=== PATIENT | female | born 1975 | race Caucasian/White ===

== ENCOUNTER 2022-01-06 14:33 | Inpatient (IN) | payer MEDICAID ==
[~2022-01-06] VITALS: Ht 160 cm; Wt 59.9 kg
[2022-01-06 15:55] LABS: ALANINE AMINOTRANSFERASE 29 U/L (12-78); ALBUMIN 4.5 G/DL (3.4-5.0); ALBUMIN/GLOBULIN RATIO 1.1 (1.1-1.5); ALKALINE PHOSPHATASE 91 IU/L (46-116); ANION GAP 33 (8-16); ASPARTATE AMINO TRANSFERASE 21 U/L (10-37); BILIRUBIN,TOTAL 0.5 MG/DL (0.1-1.0); BLOOD UREA NITROGEN 14 MG/DL (7-18); BUN/CREATININE RATIO 14.4 (6.6-38.0); CALCIUM 8.9 MG/DL (8.5-10.1); CHLORIDE 96 MMOL/L (99-107); CREATININE 0.97 MG/DL (0.40-0.90); GLUCOSE 92 MG/DL (70-104); LIPASE < 50 U/L (73-393); POTASSIUM 4.2 MMOL/L (3.5-5.1); SODIUM 138 MMOL/L (135-145); TOTAL PROTEIN 8.5 G/DL (6.4-8.2); eGFR 61 ML/MIN
[2022-01-06 15:56] LABS: BASOPHILS % (AUTO) 0.1 % (0-1); EOSINOPHILS % (AUTO) 0 % (0-6); HEMATOCRIT 45.8 % (35.0-45.0); HEMOGLOBIN 15.3 g/dl (12.0-16.0); LYMPHOCYTES # (AUTO) 1.2 X10'3 (1.1-4.8); LYMPHOCYTES % (AUTO) 8.6 % (21-51); MEAN CORPUSCULAR HEMOGLOBIN 33.4 PG (27.0-31.0); MEAN CORPUSCULAR HGB CONC 33.4 g/dL (33.0-36.5); MEAN CORPUSCULAR VOLUME 100.2 FL (78-98); MEAN PLATELET VOLUME 8.9 FL (7.4-10.4); MONOCYTES # (AUTO) 0.9 X10'3 (0-0.9); MONOCYTES % (AUTO) 6.2 % (2-12); NEUTROPHILS # (AUTO) 11.8 X10'3 (1.8-7.7); NEUTROPHILS % (AUTO) 85.1 % (42-75); PLATELET COUNT 248 X10'3 (140-440); RED BLOOD COUNT 4.58 X10'6 (4.20-5.60); RED CELL DISTRIBUTION WIDTH 14.6 % (11.5-14.5); WHITE BLOOD COUNT 13.9 X10'3 (4.5-11.0)
[2022-01-06] MEDS ORDERED: normal saline 1000ML IV soln IVB ONE ×2 (16:05→16:40)
[2022-01-06] MEDS ORDERED: ondansetron/PF 4mg/2ml inj IV ONE (16:05)
[2022-01-06 16:06] LABS: TOTAL CARBON DIOXIDE 9.5 MMOL/L (24-32)
[2022-01-06] MEDS ORDERED: famotidine/PF 10 mg/ml inj IV ONE (16:20)
[2022-01-06] MEDS ORDERED: thiamine 100mg/ml 2ml inj. IV ONE (16:20)
[2022-01-06] MEDS ORDERED: folic acid 1mg/0.2ml inj IV ONE (16:20)
[2022-01-06] MEDS ORDERED: normal saline 1000ml 1,000 ML IV ONE ×2 (16:20→16:40)
[2022-01-06 16:33] LABS: MAGNESIUM 1.7 MG/DL (1.5-2.4)
[2022-01-06 17:26] LABS: ETHANOL < 0.010 GM/DL (0.0-0.010)
[2022-01-06] MEDS ORDERED: acetaminophen 325mg tablet PO ONE (17:35)
[2022-01-06 17:49] LABS: CLARITY,URINE CLEAR (Clear); COLOR,URINE YELLOW (Yellow); GLUCOSE, URINE NEGATIVE (Neg); KETONES,URINE >=80 mg/dl (Neg); LEUKOCYTE ESTERASE ,URINE NEGATIVE (Neg); NITRITES, URINE NEGATIVE (Neg); OCCULT BLOOD,URINE TRACE-INTACT (Neg); PH,URINE 5.5 (4.8-8.0); PROTEIN,URINE TRACE mg/dl (Neg); UROBILINOGEN,URINE 0.2 E.U/dL (0.2-1.0)
[2022-01-06 17:51] LABS: UA COLLECTION TYPE NON-SPECIFIED
[2022-01-06 17:56] LABS: URINE AMPHETAMINE SCREEN NEGATIVE (Neg); URINE BARBITUATE SCREEN NEGATIVE (Neg); URINE BENZODIAZEPINES SCREEN NEGATIVE (Neg); URINE CANNABINOID SCREEN NEGATIVE (Neg); URINE COCAINE SCREEN NEGATIVE (Neg); URINE METHADONE SCREEN NEGATIVE (Neg); URINE OPIATE SCREEN NEGATIVE (Neg); URINE PHENCYCLIDINE SCREEN NEGATIVE (Neg)
[2022-01-06 18:01] LABS: BACTERIA,URINE FEW /HPF (Neg); RBC,URINE 0-2 /HPF (0-2); SQUAMOUS EPITHELIAL CELL,UR MANY /LPF (FEW); WBC,URINE 0-4 /HPF (0-4)
[2022-01-06 19:49] LABS: ABG BASE EXCESS -18.6 mmol/L (-2.0-2.0); ABG HCO3 7.4 mmol/L (22.0-26.0); ABG OXYGEN SATURATION 96.4 % (94-97); ABG PCO2 (T) 19.2 mmHg (32.0-45.0); ABG PO2 (T) 101.6 mmHg (75.0-100.0); FCOHb 0.3 % (0.0-3.9); FMetHb 0.2 % (0.0-1.5); FO2Hb 95.9 % (94-97); TOTAL HEMOGLOBIN 12.4 G/dl (12.0-16.0)
[2022-01-06] MEDS ORDERED: TRAZ-251 PO (20:59)
[2022-01-06] MEDS ORDERED: BUPR150T8 PO (20:59)
[2022-01-06 21:13] LABS: ALBUMIN 3.6 G/DL (3.4-5.0); ANION GAP 26 (8-16); BLOOD UREA NITROGEN 11 MG/DL (7-18); BUN/CREATININE RATIO 12.8 (6.6-38.0); CALCIUM 7.4 MG/DL (8.5-10.1); CHLORIDE 104 MMOL/L (99-107); CREATININE 0.86 MG/DL (0.40-0.90); GLUCOSE 80 MG/DL (70-104); POTASSIUM 4.5 MMOL/L (3.5-5.1); SODIUM 138 MMOL/L (135-145); eGFR 70 ML/MIN
[2022-01-06 21:15] LABS: TOTAL CARBON DIOXIDE 8.3 MMOL/L (24-32)
[2022-01-06] MEDS ORDERED: sodium bicarbonate (8.4%) 1 mEq/ml syringe IV ONE (22:35)
[2022-01-07] VITALS (19 sets, daily range): BP systolic 65–123; BP diastolic 42–87
--- NOTE | 2022-01-07 00:24 | NUR ---
Patient transfered from ER to room CICU 2009 via wheelchair, patient transfered to bed standing and pivoting, patient placed in hospital gown and belongings placed in a bag and put in bedside drawer. patient placed on monitor, call light in reach, bed locked and lowered. I have received report from veronica LLOYD and had the opportunity to ask questions and assume patient care .
--- NOTE | 2022-01-07 00:40 | NUR ---
Dr Ku called and patient condition reviewed, orders received
[2022-01-07] MEDS ORDERED: acetaminophen 325mg tablet PO PRN (00:45)
[2022-01-07] MEDS ORDERED: LORazepam 2 mg/ml vial IV PRN (00:45)
[2022-01-07] MEDS: ringers solution, lacted 1,000 ML IV SCH ×2 (01:18→11:14)
[2022-01-07] MEDS: ondansetron/PF 4mg/2ml inj IV PRN ×2 (01:18→09:45)
--- NOTE | 2022-01-07 06:21 | NUR ---
Problems reprioritized. Patient report given, questions answered & plan of care reviewed with Parish LLOYD.
[2022-01-07 06:23] LABS: BASOPHILS # (AUTO) 0.1 X10'3 (0-0.2); BASOPHILS % (AUTO) 0.8 % (0-1); EOSINOPHILS % (AUTO) 0 % (0-6); HEMATOCRIT 34.6 % (35.0-45.0); HEMOGLOBIN 11.6 g/dl (12.0-16.0); LYMPHOCYTES # (AUTO) 1.4 X10'3 (1.1-4.8); LYMPHOCYTES % (AUTO) 16.4 % (21-51); MEAN CORPUSCULAR HEMOGLOBIN 33.3 PG (27.0-31.0); MEAN CORPUSCULAR HGB CONC 33.5 g/dL (33.0-36.5); MEAN CORPUSCULAR VOLUME 99.5 FL (78-98); MEAN PLATELET VOLUME 8.8 FL (7.4-10.4); MONOCYTES # (AUTO) 0.9 X10'3 (0-0.9); MONOCYTES % (AUTO) 10.1 % (2-12); NEUTROPHILS # (AUTO) 6.2 X10'3 (1.8-7.7); NEUTROPHILS % (AUTO) 72.7 % (42-75); PLATELET COUNT 161 X10'3 (140-440); RED BLOOD COUNT 3.47 X10'6 (4.20-5.60); RED CELL DISTRIBUTION WIDTH 14.4 % (11.5-14.5); WHITE BLOOD COUNT 8.6 X10'3 (4.5-11.0)
[2022-01-07 07:05] LABS: ALANINE AMINOTRANSFERASE 22 U/L (12-78); ALBUMIN 3.3 G/DL (3.4-5.0); ALBUMIN/GLOBULIN RATIO 1.2 (1.1-1.5); ALKALINE PHOSPHATASE 61 IU/L (46-116); ANION GAP 18 (8-16); ASPARTATE AMINO TRANSFERASE 23 U/L (10-37); BILIRUBIN,TOTAL 0.9 MG/DL (0.1-1.0); BLOOD UREA NITROGEN 9 MG/DL (7-18); BUN/CREATININE RATIO 10.6 (6.6-38.0); CALCIUM 7.9 MG/DL (8.5-10.1); CHLORIDE 102 MMOL/L (99-107); CREATININE 0.85 MG/DL (0.40-0.90); GLUCOSE 85 MG/DL (70-104); SODIUM 134 MMOL/L (135-145); TOTAL PROTEIN 6.1 G/DL (6.4-8.2); eGFR 71 ML/MIN
[2022-01-07 07:10] LABS: TOTAL CARBON DIOXIDE 13.9 MMOL/L (24-32)
[2022-01-07] MEDS ORDERED: pantoprazole 40MG/NS 100ML BAG 100 ML IV SCH (08:00)
[2022-01-07] MEDS ORDERED: BUPR-317 PO (08:35)
[2022-01-07] MEDS ORDERED: buPROPion SR 100mg tab PO SCH (08:55)
[2022-01-07] MEDS ORDERED: buPROPion SR 150mg tablet PO SCH (09:01)
[2022-01-07] MEDS ORDERED: ESCI20TA25 PO (13:00)
[2022-01-07] MEDS ORDERED: LORazepam 1 MG tablet PO PRN (13:05)
[2022-01-07] MEDS: folic acid 1mg tablet PO SCH (14:37)
[2022-01-07] MEDS: multivitamins, therapeutics tablet PO SCH (14:37)
[2022-01-07] MEDS: thiamine 100mg tablet PO SCH (14:37)
--- NOTE | 2022-01-07 17:04 | NUR ---
Patient in room CICU 2009. I have received report from GABINO Lugo and had the opportunity to ask questions and assume patient care.
--- NOTE | 2022-01-07 17:19 | NUR ---
Report called to RN, all questions/concerns answered prior to transfer of pt. All pt's questions/concerns answered prior to transfer. All belonging accounted for prior to transfer.
--- NOTE | 2022-01-07 18:10 | NUR ---
Sodium bicarb solution due at 1725 but not available on the floor. Called pharmacy and they will bring it up shortly.
--- NOTE | 2022-01-07 18:36 | NUR ---
Patient in room ORTHO 4009. I have received report from Natividad LLOYD and had the opportunity to ask questions and assume patient care.
[2022-01-07] MEDS: sodium bicarbonate (8.4%) inj. 50 MEQ in dextrose 5%-water 1,000 ML IV SCH (18:42)
--- NOTE | 2022-01-07 18:46 | NUR ---
Problems reprioritized. Patient report given, questions answered & plan of care reviewed with GABINO James.
[2022-01-07] MEDS ORDERED: traZODone 50mg tablet PO SCH (21:00)
[2022-01-08] MEDS: sodium bicarbonate (8.4%) inj. 50 MEQ in dextrose 5%-water 1,000 ML IV SCH ×2 (04:17→14:25)
[2022-01-08 06:00] VITALS: BP 122/60
--- NOTE | 2022-01-08 06:14 | NUR ---
Problems reprioritized. Patient report given, questions answered & plan of care reviewed with Natividad LLOYD.
--- NOTE | 2022-01-08 06:49 | NUR ---
Patient in room ORTHO 4009. I have received report from GABINO James and had the opportunity to ask questions and assume patient care.
[2022-01-08] MEDS ORDERED: pantoprazole 40mg Tablet.DR PO SCH (07:30)
[2022-01-08] MEDS: thiamine 100mg tablet PO SCH (07:50)
[2022-01-08] MEDS: folic acid 1mg tablet PO SCH (07:51)
[2022-01-08] MEDS: multivitamins, therapeutics tablet PO SCH (07:51)
[2022-01-08] MEDS ORDERED: buPROPion SR 150mg tablet PO SCH (08:00)
[2022-01-08] MEDS ORDERED: ESCITALOPRAM OXALATE 5 MG TABLET PO SCH (08:00)
[2022-01-08] MEDS ORDERED: FOLI1TAB27 PO (11:39)
[2022-01-08] MEDS ORDERED: MULT-25 PO (11:39)
[2022-01-08] MEDS ORDERED: thiamine tablet PO (11:39)
[2022-01-08] MEDS ORDERED: PANT40TA54 PO (11:39)
[2022-01-08 12:00] LABS: BASOPHILS % (AUTO) 0.2 % (0-1); EOSINOPHILS % (AUTO) 0.3 % (0-6); HEMATOCRIT 36.6 % (35.0-45.0); HEMOGLOBIN 12.4 g/dl (12.0-16.0); LYMPHOCYTES # (AUTO) 1.6 X10'3 (1.1-4.8); LYMPHOCYTES % (AUTO) 33.8 % (21-51); MEAN CORPUSCULAR HEMOGLOBIN 33.1 PG (27.0-31.0); MEAN CORPUSCULAR HGB CONC 33.9 g/dL (33.0-36.5); MEAN CORPUSCULAR VOLUME 97.8 FL (78-98); MEAN PLATELET VOLUME 8.4 FL (7.4-10.4); MONOCYTES # (AUTO) 0.6 X10'3 (0-0.9); MONOCYTES % (AUTO) 12.2 % (2-12); NEUTROPHILS # (AUTO) 2.5 X10'3 (1.8-7.7); NEUTROPHILS % (AUTO) 53.5 % (42-75); PLATELET COUNT 140 X10'3 (140-440); RED BLOOD COUNT 3.74 X10'6 (4.20-5.60); RED CELL DISTRIBUTION WIDTH 13.8 % (11.5-14.5); WHITE BLOOD COUNT 4.8 X10'3 (4.5-11.0)
[2022-01-08 12:18] LABS: ALANINE AMINOTRANSFERASE 18 U/L (12-78); ALBUMIN 3.4 G/DL (3.4-5.0); ALBUMIN/GLOBULIN RATIO 1.1 (1.1-1.5); ALKALINE PHOSPHATASE 56 IU/L (46-116); ANION GAP 8 (8-16); ASPARTATE AMINO TRANSFERASE 19 U/L (10-37); BILIRUBIN,TOTAL 0.7 MG/DL (0.1-1.0); BLOOD UREA NITROGEN 5 MG/DL (7-18); BUN/CREATININE RATIO 7.6 (6.6-38.0); CALCIUM 8.6 MG/DL (8.5-10.1); CHLORIDE 101 MMOL/L (99-107); CREATININE 0.66 MG/DL (0.40-0.90); GLUCOSE 123 MG/DL (70-104); SODIUM 138 MMOL/L (135-145); TOTAL PROTEIN 6.4 G/DL (6.4-8.2); eGFR > 90 ML/MIN
[2022-01-08 12:24] LABS: POTASSIUM 2.9 MMOL/L (3.5-5.1)
--- NOTE | 2022-01-08 12:28 | NUR ---
PAGER ID: [phone] MESSAGE: Natividad [id number] RE: Graciela Soriano room 4009B labs are resulted. Lab called with critical value K 2.9
--- NOTE | 2022-01-08 12:33 | NUR ---
PAGER ID: [phone] MESSAGE: Natividad Shawnee9 THEO Soriano room 400B - there are no orders for K replacement. Would you like me to put in the orders or do you want to put them in
[2022-01-08] MEDS ORDERED: potassium CL 10mEq/100ml bag 100 ML IV PRN (12:40)
[2022-01-08] MEDS ORDERED: magnesium 4gm in 100ml NS 100 ML IV PRN (12:40)
[2022-01-08] MEDS ORDERED: magnesium Cl slow-release 64mg tablet PO PRN (12:40)
[2022-01-08] MEDS ORDERED: potassium Cl 20 mEq SR tablet PO PRN (12:40)
[2022-01-08] MEDS: potassium Cl 20 mEq SR tablet PO PRN ×2 (13:04→15:57)
[2022-01-08] MEDS ORDERED: POTA-207 PO (13:50)
--- NOTE | 2022-01-08 14:55 | NUR ---
PAGER ID: [phone] MESSAGE: Natividad [phone] THEO Graciela Soriano room 4009B - K redraw still 2.9. Replacement dose administered at 1300. Next dose due at 1700. Can she still be discharged today? Also can I stop her bicarb drip?
--- NOTE | 2022-01-08 16:01 | NUR ---
Contacted Dr. Hebert about K lever of 2.9 and to let her know that 1st dose of the replacement has been administered. The doctor ordered the second dose of K replacement to be given in 2 hours as opposed to the 4 hours noted in the K replacement protocol. Confirmed with MD that she is ordering the dose to be given sooner and she confirmed. Put in a miscellaneous nursing order with that info and notified Charge nurse as well.
--- NOTE | 2022-01-08 16:38 | NUR ---
Patient was discharged at 1630 with instructions and verbalizing understanding of instructions, in wheel chair accompanied by nursing staff. Patient was going home via private vehicle accompanied by her mother. All lines including PIV with cannula intact have been removed. Prescriptions have been called into preferred pharmacy. Patient was given information regarding [facility] as instructed by the provider. Education about new prescriptions has been provided and all questions have been answered. Patient will set follow up appointment with PCP to follow up on potassium levels in 1-2 weeks. Patient is stable and appropriate for discharge.
[2022-01-08] MEDS ORDERED: K and/or MAG REPLACEMENT MC SCH (20:00)
== END 2022-01-08 16:45 | disposition home or self-care (01) | DRG 241 ==
LOC: ER 14:34 → ED HOLD 22:11 → CICU 2S 01-07 00:01 → ORTHO 4S 01-07 17:13
PROVIDERS: ADMIT Internal Medicine; ATTEND Internal Medicine
DX: K29.70 Gastritis, unspecified, without bleeding (principal); E87.2 Acidosis; E86.0 Dehydration; Z20.822 Contact with and (suspected) exposure to COVID-19; F10.10 Alcohol abuse, uncomplicated; F32.A Depression, unspecified; F41.9 Anxiety disorder, unspecified; G47.00 Insomnia, unspecified; Z79.899 Other long term (current) drug therapy; Z88.1 Allergy status to other antibiotic agents
CPT/HCPCS: 36415; 36600; 71045; 80048; 80053; 80305; 80320; 80329; 81001; 82009; 82803; 83605; 83690; 83735; 83930; 84132; 85018; 85025; 87081; 99285; C9113; G0378; J2405; J3411; J3490; J7030; J7070; J7120

== ENCOUNTER 2022-11-23 21:06 | Inpatient (IN) | payer MEDICAID ==
[~2022-11-23] VITALS: Ht 160 cm; Wt 55.6 kg
[~2022-11-23 21:06] MED LIST: ESCI20TA36 PO; MULT-1085 PO; TRAZ-251 PO
[2022-11-23] MEDS ORDERED: diphenhydrAMINE 50 mg/ml inj IV ONE (22:55)
[2022-11-23] MEDS ORDERED: famotidine/PF 10 mg/ml inj IV ONE (22:55)
[2022-11-23] MEDS ORDERED: normal saline 1000ml 1,000 ML IV ONE ×2 (22:55)
[2022-11-23] MEDS ORDERED: proCHLORperazine 10 MG/2 ml inj IV ONE (22:55)
[2022-11-23] MEDS ORDERED: LORazepam 2 mg/ml vial IV ONE (23:00)
[2022-11-23 23:40] LABS: BASOPHILS % (AUTO) 0.3 % (0-1); EOSINOPHILS % (AUTO) 0 % (0-6); LYMPHOCYTES # (AUTO) 0.4 X10'3 (1.1-4.8); LYMPHOCYTES % (AUTO) 3.8 % (21-51); MEAN CORPUSCULAR HEMOGLOBIN 36.8 PG (27.0-31.0); MEAN CORPUSCULAR HGB CONC 34.2 g/dL (33.0-36.5); MEAN CORPUSCULAR VOLUME 107.6 FL (78-98); MEAN PLATELET VOLUME 8.7 FL (7.4-10.4); MONOCYTES # (AUTO) 0.5 X10'3 (0-0.9); MONOCYTES % (AUTO) 4.9 % (2-12); NEUTROPHILS # (AUTO) 9.9 X10'3 (1.8-7.7); PLATELET COUNT 144 X10'3 (140-440); RED BLOOD COUNT 3.81 X10'6 (4.20-5.60); RED CELL DISTRIBUTION WIDTH 13.6 % (11.5-14.5); WHITE BLOOD COUNT 10.9 X10'3 (4.5-11.0)
[2022-11-23 23:54] LABS: ALANINE AMINOTRANSFERASE 42 U/L (12-78); ALBUMIN 4.9 G/DL (3.4-5.0); ALBUMIN/GLOBULIN RATIO 1.2 (1.1-1.5); ALKALINE PHOSPHATASE 101 IU/L (46-116); ANION GAP 32 (8-16); ASPARTATE AMINO TRANSFERASE 24 U/L (10-37); BILIRUBIN,TOTAL 1.9 MG/DL (0.1-1.0); BLOOD UREA NITROGEN 10 MG/DL (7-18); BUN/CREATININE RATIO 9.5 (10.0-20.0); CALCIUM 8.5 MG/DL (8.5-10.1); CHLORIDE 88 MMOL/L (99-107); CREATININE 1.05 MG/DL (0.40-0.90); GLUCOSE 314 MG/DL (70-104); LIPASE < 50 U/L (73-393); POTASSIUM 5.2 MMOL/L (3.5-5.1); SODIUM 129 MMOL/L (135-145); TOTAL PROTEIN 8.9 G/DL (6.4-8.2); eGFR 56 ML/MIN
[2022-11-23 23:57] LABS: TOTAL CARBON DIOXIDE 9.4 MMOL/L (24-32)
[2022-11-24] MEDS ORDERED: magnesium 4gm in 100ml NS 100 ML IV ONE (00:10)
[2022-11-24] MEDS ORDERED: thiamine 100mg/ml 2ml inj. IV ONE (00:15)
[2022-11-24 00:38] LABS: ABG BASE EXCESS -15.3 mmol/L (-2.0-2.0); ABG HCO3 7.7 mmol/L (22.0-26.0); ABG OXYGEN SATURATION 98.9 % (94-97); ABG PCO2 (T) 15.2 mmHg (32.0-45.0); ALLEN'S TEST Modified; FCOHb 0.9 % (0.0-3.9); FMetHb 0.4 % (0.0-1.5); FO2Hb 97.6 % (94-97); PATIENT TEMPERATURE 37.1
[2022-11-24] MEDS ORDERED: HYDROcodone/acetaminophen 10/325mg tab PO PRN (01:25)
[2022-11-24] MEDS ORDERED: potassium Cl 20 mEq SR tablet PO PRN (01:25)
[2022-11-24] MEDS ORDERED: mag hydrox/Alum hydrox/simeth 30ml oral suspension PO PRN (01:25)
[2022-11-24] MEDS ORDERED: ondansetron/PF 4mg/2ml inj IV PRN (01:25)
[2022-11-24] MEDS ORDERED: haloperidol 5mg tablet PO PRN (01:25)
[2022-11-24] MEDS ORDERED: magnesium hydroxide 30ml (MOM) UD suspension PO PRN (01:25)
[2022-11-24] MEDS ORDERED: haloperidol lactate 5mg/ml inj IM PRN (01:25)
[2022-11-24] MEDS ORDERED: magnesium 4gm in 100ml NS 100 ML IV PRN (01:25)
[2022-11-24] MEDS ORDERED: metoclopramide 5 mg/ml inj IV PRN (01:25)
[2022-11-24] MEDS ORDERED: LORazepam 2 mg/ml vial IV PRN (01:25)
[2022-11-24] MEDS ORDERED: HYDROcodone/acetaminophen 5mg/325mg tablet PO PRN (01:25)
[2022-11-24] MEDS ORDERED: acetaminophen 325mg tablet PO PRN ×2 (01:25)
[2022-11-24] MEDS ORDERED: potassium Cl 40MEQ/1/2NS 520ml 520 ML IV PRN (01:25)
[2022-11-24 01:27] LABS: PHOSPHORUS 1.5 MG/DL (2.3-4.5)
[2022-11-24] MEDS: normal saline 1000ml 1,000 ML IV SCH ×4 (01:35→22:21)
[2022-11-24] MEDS ORDERED: ketorolac trometh. 30mg/ml inj. IV STA (01:45)
--- NOTE | 2022-11-24 07:27 | NUR ---
Report given to GABINO العراقي, pt room assignment [id number]
--- NOTE | 2022-11-24 07:32 | NUR ---
Received report form GABINO Asencio from the ER. Patient will be comming up via [facility] at this time.
--- NOTE | 2022-11-24 07:50 | NUR ---
Assumed care of pt. In room 313 B. NAD at this time. IV infusing per orders. VS WNL. TELE number 22 placed. Bed locked/ lowest position. Fluids present.
[2022-11-24 08:00] VITALS: BP 111/75
[2022-11-24] MEDS: ESCITALOPRAM OXALATE 5 MG TABLET PO SCH (08:00)
[2022-11-24] MEDS: multivitamins, therapeutics tablet PO SCH ×2 (08:00→09:16)
[2022-11-24] MEDS: K and/or MAG REPLACEMENT MC SCH ×2 (08:00→19:40)
[2022-11-24] MEDS: calcium carbonate 500mg chew tablet PO SCH ×3 (09:16→18:13)
[2022-11-24] MEDS: thiamine 100mg tablet PO SCH ×2 (09:17→19:37)
[2022-11-24] MEDS: docusate sod 100mg capsule PO SCH ×2 (09:17→19:40)
[2022-11-24 09:49] LABS: BASOPHILS % (AUTO) 0.7 % (0-1); EOSINOPHILS % (AUTO) 0.2 % (0-6); HEMATOCRIT 31.6 % (35.0-45.0); HEMOGLOBIN 10.6 g/dl (12.0-16.0); LYMPHOCYTES # (AUTO) 1.2 X10'3 (1.1-4.8); LYMPHOCYTES % (AUTO) 17.3 % (21-51); MEAN CORPUSCULAR HEMOGLOBIN 35.7 PG (27.0-31.0); MEAN CORPUSCULAR HGB CONC 33.5 g/dL (33.0-36.5); MEAN CORPUSCULAR VOLUME 106.6 FL (78-98); MEAN PLATELET VOLUME 8.3 FL (7.4-10.4); MONOCYTES # (AUTO) 0.8 X10'3 (0-0.9); MONOCYTES % (AUTO) 11.1 % (2-12); NEUTROPHILS # (AUTO) 4.9 X10'3 (1.8-7.7); NEUTROPHILS % (AUTO) 70.7 % (42-75); PLATELET COUNT 96 X10'3 (140-440); RED BLOOD COUNT 2.96 X10'6 (4.20-5.60); RED CELL DISTRIBUTION WIDTH 13.3 % (11.5-14.5); WHITE BLOOD COUNT 6.9 X10'3 (4.5-11.0)
--- NOTE | 2022-11-24 09:56 | NUR ---
Ordered labs per protocal. Pt is NAD at this time, reassessing k, there was no f/u labs on anything.
[2022-11-24 10:08] LABS: ALANINE AMINOTRANSFERASE 30 U/L (12-78); ALBUMIN 3.6 G/DL (3.4-5.0); ALBUMIN/GLOBULIN RATIO 1.3 (1.1-1.5); ALKALINE PHOSPHATASE 68 IU/L (46-116); ANION GAP 13 (8-16); ASPARTATE AMINO TRANSFERASE 22 U/L (10-37); BILIRUBIN,TOTAL 1.2 MG/DL (0.1-1.0); BLOOD UREA NITROGEN 10 MG/DL (7-18); BUN/CREATININE RATIO 11.8 (10.0-20.0); CALCIUM 7.6 MG/DL (8.5-10.1); CHLORIDE 100 MMOL/L (99-107); CREATININE 0.85 MG/DL (0.40-0.90); GLUCOSE 157 MG/DL (70-104); SODIUM 131 MMOL/L (135-145); TOTAL CARBON DIOXIDE 17.8 MMOL/L (24-32); TOTAL PROTEIN 6.4 G/DL (6.4-8.2); eGFR 71 ML/MIN
--- NOTE | 2022-11-24 10:38 | NUR ---
Pagenatalie PEARSON to help assist with admission process.
[2022-11-24 11:00] VITALS: BP 121/56
--- NOTE | 2022-11-24 13:02 | NUR ---
Paged the Hospitalist for in re: to pt's Na, and c/o of black tarry stools. Will CTM until feedback.
[2022-11-24 15:41] LABS: BASOPHILS % (AUTO) 0.7 % (0-1); EOSINOPHILS % (AUTO) 0.3 % (0-6); HEMATOCRIT 31.6 % (35.0-45.0); HEMOGLOBIN 10.8 g/dl (12.0-16.0); LYMPHOCYTES # (AUTO) 1.3 X10'3 (1.1-4.8); LYMPHOCYTES % (AUTO) 20.4 % (21-51); MEAN CORPUSCULAR HEMOGLOBIN 36.4 PG (27.0-31.0); MEAN CORPUSCULAR HGB CONC 34.1 g/dL (33.0-36.5); MEAN CORPUSCULAR VOLUME 106.7 FL (78-98); MEAN PLATELET VOLUME 9.2 FL (7.4-10.4); MONOCYTES # (AUTO) 0.6 X10'3 (0-0.9); NEUTROPHILS # (AUTO) 4.4 X10'3 (1.8-7.7); NEUTROPHILS % (AUTO) 68.6 % (42-75); PLATELET COUNT 101 X10'3 (140-440); RED BLOOD COUNT 2.96 X10'6 (4.20-5.60); RED CELL DISTRIBUTION WIDTH 13.8 % (11.5-14.5); WHITE BLOOD COUNT 6.4 X10'3 (4.5-11.0)
--- NOTE | 2022-11-24 16:46 | NUR ---
Hospitalist followed up in re: to q8 hr CBC checks which was ordered. EGD is going to be done this the morning an a sign is posted to remain NPO after midnight. Patients is stable at this time.
[2022-11-24 18:30] VITALS: BP 130/76
--- NOTE | 2022-11-24 18:36 | NUR ---
Reprioritized plan of care, report given to GABINO Thompson.
[2022-11-24] MEDS ORDERED: enoxaparin 40mg/0.4ml syringe SQ SCH (20:00)
[2022-11-24] MEDS: traZODone 50mg tablet PO SCH (22:20)
[2022-11-24 22:30] VITALS: BP 117/76
[2022-11-25] VITALS (9 sets, daily range): BP systolic 91–146; BP diastolic 56–87
[2022-11-25 01:59] LABS: BASOPHILS % (AUTO) 0.5 % (0-1); EOSINOPHILS % (AUTO) 0.5 % (0-6); HEMATOCRIT 30.5 % (35.0-45.0); HEMOGLOBIN 10.5 g/dl (12.0-16.0); LYMPHOCYTES # (AUTO) 1.3 X10'3 (1.1-4.8); LYMPHOCYTES % (AUTO) 28.1 % (21-51); MEAN CORPUSCULAR HEMOGLOBIN 36.6 PG (27.0-31.0); MEAN CORPUSCULAR HGB CONC 34.4 g/dL (33.0-36.5); MEAN CORPUSCULAR VOLUME 106.2 FL (78-98); MEAN PLATELET VOLUME 8.6 FL (7.4-10.4); MONOCYTES # (AUTO) 0.3 X10'3 (0-0.9); MONOCYTES % (AUTO) 5.6 % (2-12); NEUTROPHILS # (AUTO) 3.1 X10'3 (1.8-7.7); NEUTROPHILS % (AUTO) 65.3 % (42-75); PLATELET COUNT 85 X10'3 (140-440); RED BLOOD COUNT 2.87 X10'6 (4.20-5.60); RED CELL DISTRIBUTION WIDTH 13.5 % (11.5-14.5); WHITE BLOOD COUNT 4.7 X10'3 (4.5-11.0)
[2022-11-25 03:39] LABS: ALANINE AMINOTRANSFERASE 28 U/L (12-78); ALBUMIN 3.6 G/DL (3.4-5.0); ALBUMIN/GLOBULIN RATIO 1.4 (1.1-1.5); ALKALINE PHOSPHATASE 62 IU/L (46-116); ANION GAP 12 (8-16); ASPARTATE AMINO TRANSFERASE 28 U/L (10-37); BILIRUBIN,TOTAL 1.1 MG/DL (0.1-1.0); BLOOD UREA NITROGEN 4 MG/DL (7-18); BUN/CREATININE RATIO 6.8 (10.0-20.0); CALCIUM 8.1 MG/DL (8.5-10.1); CHLORIDE 106 MMOL/L (99-107); CREATININE 0.59 MG/DL (0.40-0.90); FERRITIN 761 NG/ML (8-252); GLUCOSE 95 MG/DL (70-104); LIPASE 91 U/L (73-393); MAGNESIUM 1.9 MG/DL (1.5-2.4); POTASSIUM 3.3 MMOL/L (3.5-5.1); SODIUM 140 MMOL/L (135-145); TOTAL CARBON DIOXIDE 22.4 MMOL/L (24-32); TOTAL PROTEIN 6.1 G/DL (6.4-8.2); eGFR > 90 ML/MIN
[2022-11-25 03:40] LABS: PHOSPHORUS 0.8 MG/DL (2.3-4.5)
[2022-11-25] MEDS: potassium Cl 20 mEq SR tablet PO PRN ×2 (03:45→19:37)
[2022-11-25] MEDS: normal saline 1000ml 1,000 ML IV SCH ×3 (03:50→16:50)
[2022-11-25] MEDS: Neutra Phos packet PO SCH ×4 (04:30→19:37)
[2022-11-25 06:52] LABS: % IRON SATURATION 87 % (11-46); IRON 220 UG/DL (49-151); TOTAL IRON BINDING CAPACITY 254 UG/DL (259-388)
[2022-11-25] MEDS: multivitamins, therapeutics tablet PO SCH ×2 (07:34→08:00)
[2022-11-25] MEDS: ESCITALOPRAM OXALATE 5 MG TABLET PO SCH (07:34)
[2022-11-25] MEDS: thiamine 100mg tablet PO SCH ×2 (07:34→19:37)
[2022-11-25] MEDS: calcium carbonate 500mg chew tablet PO SCH ×3 (07:35→16:50)
[2022-11-25] MEDS ORDERED: Neutra Phos packet PO SCH (08:00)
[2022-11-25] MEDS: docusate sod 100mg capsule PO SCH (08:00)
[2022-11-25] MEDS: K and/or MAG REPLACEMENT MC SCH ×2 (08:00→19:37)
[2022-11-25] MEDS ORDERED: pantoprazole 40mg IV 80 MG in normal saline 100ml IV soln 100 ML IV ONE (10:00)
[2022-11-25] MEDS: pantoprazole 40MG/NS 100ML BAG 100 ML IV SCH ×3 (11:31→21:57)
[2022-11-25] MEDS ORDERED: fentaNYL/PF 50MCG/1 ML 2ML syringe ONE (12:50)
[2022-11-25] MEDS ORDERED: MIDAZolam 1 MG/ML 5ML VIAL ONE (12:50)
[2022-11-25] MEDS ORDERED: LIDOcaine Viscous 15ml cup ONE (12:50)
[2022-11-25] MEDS ORDERED: diphenhydrAMINE 50 mg/ml inj ONE (16:43)
--- NOTE | 2022-11-25 18:05 | NUR ---
Problems reprioritized. Patient report given, questions answered & plan of care reviewed with GABINO Thompson.
[2022-11-25] MEDS: traZODone 50mg tablet PO SCH (22:01)
[2022-11-26] MEDS: Neutra Phos packet PO SCH ×2 (00:17→10:48)
[2022-11-26] MEDS ORDERED: LORazepam 2 mg/ml vial IV PRN (01:25)
[2022-11-26] MEDS ORDERED: LORazepam 1 MG tablet PO PRN (01:25)
[2022-11-26] MEDS: pantoprazole 40MG/NS 100ML BAG 100 ML IV SCH ×3 (01:31→11:00)
[2022-11-26 02:00] VITALS: BP 118/72
[2022-11-26] MEDS: normal saline 1000ml 1,000 ML IV SCH (07:13)
[2022-11-26] MEDS: multivitamins, therapeutics tablet PO SCH (07:15)
[2022-11-26] MEDS: ESCITALOPRAM OXALATE 5 MG TABLET PO SCH (07:15)
[2022-11-26] MEDS: calcium carbonate 500mg chew tablet PO SCH (07:15)
[2022-11-26] MEDS: thiamine 100mg tablet PO SCH (07:16)
[2022-11-26 07:20] VITALS: BP 112/71
[2022-11-26 07:51] LABS: ALANINE AMINOTRANSFERASE 61 U/L (12-78); ALBUMIN 3.4 G/DL (3.4-5.0); ALBUMIN/GLOBULIN RATIO 1.4 (1.1-1.5); ALKALINE PHOSPHATASE 61 IU/L (46-116); ANION GAP 8 (8-16); ASPARTATE AMINO TRANSFERASE 91 U/L (10-37); CALCIUM 8.5 MG/DL (8.5-10.1); CHLORIDE 106 MMOL/L (99-107); CREATININE 0.42 MG/DL (0.40-0.90); GLUCOSE 99 MG/DL (70-104); LIPASE 165 U/L (73-393); MAGNESIUM 1.5 MG/DL (1.5-2.4); PHOSPHORUS 2.2 MG/DL (2.3-4.5); POTASSIUM 3.5 MMOL/L (3.5-5.1); SODIUM 140 MMOL/L (135-145); TOTAL CARBON DIOXIDE 26.2 MMOL/L (24-32); TOTAL PROTEIN 5.8 G/DL (6.4-8.2); eGFR > 90 ML/MIN
[2022-11-26] MEDS ORDERED: naltrexone 50mg tablet PO SCH (08:00)
[2022-11-26] MEDS: K and/or MAG REPLACEMENT MC SCH (08:00)
[2022-11-26 08:19] LABS: BLOOD UREA NITROGEN 1 MG/DL (7-18); BUN/CREATININE RATIO 2.4 (10.0-20.0)
[2022-11-26 09:20] LABS: BASOPHILS % (AUTO) 0.4 % (0-1); EOSINOPHILS % (AUTO) 1.2 % (0-6); HEMATOCRIT 31.9 % (35.0-45.0); HEMOGLOBIN 10.4 g/dl (12.0-16.0); LYMPHOCYTES % (AUTO) 29.7 % (21-51); MEAN CORPUSCULAR HEMOGLOBIN 36.3 PG (27.0-31.0); MEAN CORPUSCULAR HGB CONC 32.6 g/dL (33.0-36.5); MEAN CORPUSCULAR VOLUME 111.2 FL (78-98); MEAN PLATELET VOLUME 9.2 FL (7.4-10.4); MONOCYTES # (AUTO) 0.3 X10'3 (0-0.9); MONOCYTES % (AUTO) 7.8 % (2-12); NEUTROPHILS % (AUTO) 60.9 % (42-75); PLATELET COUNT 68 X10'3 (140-440); RED BLOOD COUNT 2.87 X10'6 (4.20-5.60); RED CELL DISTRIBUTION WIDTH 13.7 % (11.5-14.5); WHITE BLOOD COUNT 3.3 X10'3 (4.5-11.0)
[2022-11-26] MEDS ORDERED: THIA100T70 PO (10:50)
[2022-11-26] MEDS ORDERED: PANT-47 PO (10:50)
[2022-11-26] MEDS ORDERED: MULT-25 PO (10:50)
[2022-11-26] MEDS ORDERED: FOLI1TAB27 PO (10:50)
[2022-11-26] MEDS ORDERED: NALT50TA PO (10:50)
[2022-11-26 10:59] VITALS: BP 127/78
--- NOTE | 2022-11-26 12:04 | NUR ---
Patient stable and appropriate for discharge home with mother. Iv and felt carbonizer removed. New RX e-scripted to preferred pharmacy. All discharge instructions and education given and reviewed with patient. all questions answered.
[2022-11-28] MEDS ORDERED: LORazepam 2 mg/ml vial IV PRN (01:25)
[2022-11-28] MEDS ORDERED: LORazepam 1 MG tablet PO PRN (01:25)
[2022-11-28] MEDS ORDERED: folic acid 1mg tablet PO SCH (08:00)
== END 2022-11-26 12:07 | disposition home or self-care (01) | DRG 425 ==
LOC: ER 21:06 → ED HOLD 11-24 01:31 → PCU 3S 11-24 07:36
PROVIDERS: ADMIT Family Medicine; ATTEND Internal Medicine
PROC: 0DJ08ZZ Inspection of Upper Intestinal Tract, Via Natural or Artificial Opening Endoscopic (ICD-10-PCS; principal; 2022-11-25)
DX: E87.29 Other acidosis (principal); K92.0 Hematemesis; E83.39 Other disorders of phosphorus metabolism; R04.2 Hemoptysis; F10.139 Alcohol abuse with withdrawal, unspecified; E87.1 Hypo-osmolality and hyponatremia; E83.42 Hypomagnesemia; F17.210 Nicotine dependence, cigarettes, uncomplicated; G43.909 Migraine, unspecified, not intractable, without status migrainosus; R53.81 Other malaise; K92.1 Melena; Z88.1 Allergy status to other antibiotic agents; Z79.899 Other long term (current) drug therapy; Z71.6 Tobacco abuse counseling
CPT/HCPCS: 36415; 36600; 70450; 80053; 82009; 82607; 82728; 82803; 82948; 83540; 83550; 83605; 83690; 83735; 84100; 85018; 85025; 85610; 87081; 99152; 99153; 99285; A4620; C9113; G0378; J0780; J1200; J1885; J2060; J2250; J2405; J3010; J3411; J3475; J3490; J7030

== ENCOUNTER 2023-05-07 23:02 | Inpatient (IN) | payer MEDICAID ==
[~2023-05-07] VITALS: Ht 160 cm; Wt 51.9 kg
[~2023-05-07 23:02] MED LIST changes: +FOLI1TAB27 PO; -MULT-1085 PO; +MULT-25 PO; +NALT50TA PO; +PANT-47 PO; +THIA100T70 PO
[2023-05-07] MEDS ORDERED: ondansetron/PF 4mg/2ml inj IV ONE (23:20)
[2023-05-07] MEDS ORDERED: pantoprazole 40mg IV 80 MG in normal saline 100ml IV soln 100 ML IV ONE (23:20)
[2023-05-07] MEDS ORDERED: normal saline 1000ml 1,000 ML IV ONE (23:20)
[2023-05-07] MEDS ORDERED: proCHLORperazine 10 MG/2 ml inj IV ONE (23:40)
[2023-05-07] MEDS ORDERED: morphine 4 MG/ML inj SYRINge IV ONE (23:40)
[2023-05-08] VITALS (8 sets, daily range): BP systolic 83–115; BP diastolic 53–73; PULSE 86–122; RESP 14–21; TEMP 98.1–100.3; O2SAT 97–98
[2023-05-08] MEDS: pantoprazole 40MG/NS 100ML BAG 100 ML IV SCH ×3 (00:08→20:13)
[2023-05-08 00:30] LABS: BASOPHILS # (AUTO) 0.1 X10'3 (0-0.2); BASOPHILS % (AUTO) 0.8 % (0-1); EOSINOPHILS % (AUTO) 0 % (0-6); HEMATOCRIT 40.1 % (35.0-45.0); HEMOGLOBIN 13.4 g/dl (12.0-16.0); LYMPHOCYTES # (AUTO) 0.7 X10'3 (1.1-4.8); LYMPHOCYTES % (AUTO) 5.4 % (21-51); MEAN CORPUSCULAR HEMOGLOBIN 36.1 PG (27.0-31.0); MEAN CORPUSCULAR HGB CONC 33.4 g/dL (33.0-36.5); MEAN PLATELET VOLUME 8.4 FL (7.4-10.4); MONOCYTES # (AUTO) 0.8 X10'3 (0-0.9); NEUTROPHILS # (AUTO) 11.6 X10'3 (1.8-7.7); NEUTROPHILS % (AUTO) 87.8 % (42-75); PLATELET COUNT 168 X10'3 (140-440); RED BLOOD COUNT 3.71 X10'6 (4.20-5.60); RED CELL DISTRIBUTION WIDTH 13.9 % (11.5-14.5); WHITE BLOOD COUNT 13.2 X10'3 (4.5-11.0)
[2023-05-08 00:37] LABS: ALANINE AMINOTRANSFERASE 74 U/L (12-78); ALBUMIN 4.6 G/DL (3.4-5.0); ALBUMIN/GLOBULIN RATIO 1.1 (1.1-1.5); ALKALINE PHOSPHATASE 115 IU/L (46-116); ANION GAP 32 (8-16); ASPARTATE AMINO TRANSFERASE 61 U/L (10-37); BILIRUBIN,TOTAL 2.4 MG/DL (0.1-1.0); BLOOD UREA NITROGEN 13 MG/DL (7-18); BUN/CREATININE RATIO 5.9 (10.0-20.0); CALCIUM 9.4 MG/DL (8.5-10.1); CHLORIDE 84 MMOL/L (99-107); CREATININE 2.22 MG/DL (0.40-0.90); GLUCOSE 319 MG/DL (70-104); POTASSIUM 4.6 MMOL/L (3.5-5.1); SODIUM 130 MMOL/L (135-145); TOTAL PROTEIN 8.7 G/DL (6.4-8.2); eCRCL 25 ML/MIN; eGFR 23 ML/MIN
[2023-05-08 00:57] LABS: ETHANOL < 10 MG/DL (<10)
[2023-05-08 01:09] LABS: TOTAL CARBON DIOXIDE 13.8 MMOL/L (24-32)
[2023-05-08 01:21] LABS: HEMOGLOBIN A1C 4.9 % (4.5-6.2)
[2023-05-08 01:54] LABS: ABG OXYGEN SATURATION 95.5 % (94-97); ABG PCO2 (T) 22.2 mmHg (32.0-45.0); ABG PH (T) 7.346 (7.350-7.450); ABG PO2 (T) 81.3 mmHg (75.0-100.0); ALLEN'S TEST POSITIVE; FCOHb 0.1 % (0.0-3.9); FHHb 4.5 % (0.0-5.0); FMetHb 0.3 % (0.0-1.5); FO2Hb 95.1 % (94-97); MODE ROOM AIR; PATIENT TEMPERATURE 36.3; TOTAL HEMOGLOBIN 11.8 G/dl (12.0-16.0)
[2023-05-08 02:09] LABS: APTT 25 SECONDS (22-32); INR 1.2 INR; PROTHROMBIN TIME 12.4 SECONDS (9.0-12.0)
[2023-05-08] MEDS ORDERED: magnesium hydroxide 30ml (MOM) UD suspension PO PRN ×2 (03:05→10:35)
[2023-05-08] MEDS ORDERED: ondansetron/PF 4mg/2ml inj IV PRN ×2 (03:05→10:35)
[2023-05-08] MEDS ORDERED: MESSAGE TO PHARMACY PO ONE (03:10)
[2023-05-08] MEDS ORDERED: DEXTROSE 15 GM of carb/4 tabs (each vial/BOTTLE has 4 tablets) PO PRN ×2 (03:10)
[2023-05-08] MEDS ORDERED: insulin Lispro (HumaLOG) vial - multi-dose SQ SCH (03:10)
[2023-05-08] MEDS ORDERED: glucagon, human recombinant 1mg kit SUBCUT PRN (03:10)
[2023-05-08] MEDS ORDERED: dextrose 50%-water 50ml dispensing syringe IV PRN ×2 (03:10)
[2023-05-08] MEDS: normal saline 1000ml 1,000 ML IV SCH ×4 (03:37→19:27)
--- NOTE | 2023-05-08 03:59 | NUR ---
SPOKE WITH DR CHERRY REGARDING PT HIGH HR AND LOW MAP. PT DENIES SYMPTOMS. ALSO DISCUSSED NEED FOR BICARB AND NO NEW ORDERS FOR THAT. DID RECIEVE ORDERS FOR A REPEAT CBC, 5% ALBUMIN 500MLS IV ONCE AND TO GIVE THE 1 UNIT HUMALOG INSULIN PER NIGHTIME CORRECTION PROTOCOL.
[2023-05-08] MEDS ORDERED: albumin (Human) 5% 250ml 250 ML IV ONE ×2 (04:10)
[2023-05-08 04:13] LABS: BILIRUBIN,URINE MODERATE (Neg); CLARITY,URINE SLIGHTLY CLOUDY (Clear); COLOR,URINE YELLOW (Yellow); GLUCOSE, URINE NEGATIVE (Neg); KETONES,URINE >=80 mg/dl (Neg); LEUKOCYTE ESTERASE ,URINE NEGATIVE (Neg); NITRITES, URINE NEGATIVE (Neg); OCCULT BLOOD,URINE SMALL (Neg); PROTEIN,URINE 100 mg/dl (Neg); UROBILINOGEN,URINE 0.2 E.U/dL (0.2-1.0)
[2023-05-08 04:18] LABS: SQUAMOUS EPITHELIAL CELL,UR MANY /LPF (FEW); UA COLLECTION TYPE CLN CATCH MIDSTREAM
[2023-05-08 04:19] LABS: MUCUS STRANDS FEW /LPF (Neg)
[2023-05-08 04:21] LABS: TRANSITIONAL EPI CELLS,URINE FEW /HPF
[2023-05-08 04:22] LABS: RENAL CELLS, URINE FEW /HPF
[2023-05-08 04:23] LABS: RBC,URINE 0-2 /HPF (0-2); WBC,URINE 0-4 /HPF (0-4)
[2023-05-08 04:24] LABS: BACTERIA,URINE 3+ /HPF (Neg)
[2023-05-08 04:40] LABS: BASOPHILS % (AUTO) 0.2 % (0-1); EOSINOPHILS % (AUTO) 0 % (0-6); HEMATOCRIT 30.5 % (35.0-45.0); HEMOGLOBIN 10.3 g/dl (12.0-16.0); LYMPHOCYTES # (AUTO) 0.7 X10'3 (1.1-4.8); LYMPHOCYTES % (AUTO) 6.3 % (21-51); MEAN CORPUSCULAR HEMOGLOBIN 36.1 PG (27.0-31.0); MEAN CORPUSCULAR HGB CONC 33.9 g/dL (33.0-36.5); MEAN CORPUSCULAR VOLUME 106.5 FL (78-98); MEAN PLATELET VOLUME 8.5 FL (7.4-10.4); MONOCYTES # (AUTO) 0.6 X10'3 (0-0.9); MONOCYTES % (AUTO) 5.3 % (2-12); NEUTROPHILS # (AUTO) 10.2 X10'3 (1.8-7.7); NEUTROPHILS % (AUTO) 88.2 % (42-75); PLATELET COUNT 129 X10'3 (140-440); RED BLOOD COUNT 2.86 X10'6 (4.20-5.60); RED CELL DISTRIBUTION WIDTH 14.2 % (11.5-14.5); WHITE BLOOD COUNT 11.5 X10'3 (4.5-11.0)
--- NOTE | 2023-05-08 04:41 | NUR ---
RECHECKED PT BLOOD GLUCOSE PRIOR TO INSULIN ADMIN. PT BLOOD GLUCOSE 217, PER PROTOCOL, INSULIN NOT NEEDED.
[2023-05-08] MEDS ORDERED: ringers solution, lacted 1,000 ML IV ONE (06:35)
--- NOTE | 2023-05-08 06:36 | NUR ---
Per ICU doctor, Dr. Morris, patient does not have to be an ICU patient and should be downgraded. He said he will talk to the hospitalist doctor. Charge nurse Deyanira aware of this
[2023-05-08] MEDS ORDERED: pantoprazole 40MG/NS 100ML BAG 100 ML IV SCH (08:00)
--- NOTE | 2023-05-08 08:50 | NUR ---
Patiernt got up to the bedside commode, peripheral IV on left forearm got pulled out by accident
--- NOTE | 2023-05-08 09:15 | NUR ---
Dr. Xiong notified about the patient has dark stool when she has BM. Guiac stool performed, Dr. Xiong seen it and said its positive
[2023-05-08] MEDS: CefTRIAXone/D5W-Rocephin 1gm 50 ML IV SCH (09:21)
[2023-05-08] MEDS ORDERED: octreotide inj. 1,250 MCG in normal saline 250ml IV soln 250 ML IV ONE (09:45)
[2023-05-08 09:48] LABS: OCCULT BLOOD STOOL POSITIVE (Neg)
[2023-05-08] MEDS ORDERED: potassium Cl 40MEQ/1/2NS 520ml 520 ML IV PRN (10:35)
[2023-05-08] MEDS ORDERED: morphine 2 MG/ML inj. syringe IV PRN ×2 (10:35)
[2023-05-08] MEDS ORDERED: HYDROcodone/acetaminophen 10/325mg tab PO PRN (10:35)
[2023-05-08] MEDS ORDERED: magnesium 4gm in 100ml NS 100 ML IV PRN (10:35)
[2023-05-08] MEDS ORDERED: acetaminophen 325mg tablet PO PRN ×2 (10:35)
[2023-05-08] MEDS ORDERED: magnesium 2GM in 50ml NS 50 ML IV PRN (10:35)
[2023-05-08] MEDS ORDERED: HYDROcodone/acetaminophen 5mg/325mg tablet PO PRN (10:35)
--- NOTE | 2023-05-08 11:39 | NUR ---
GI lab nurse and resident told me that Dr. Paniagua preferred to do the EGD either in the ER or ICU setting. Charge nurse Deyanira was notified about this. Patient moved to a bigger room bed 6 from bed 8
[2023-05-08] MEDS ORDERED: fentaNYL/PF 50MCG/1 ML 2ML syringe ONE (11:50)
[2023-05-08] MEDS ORDERED: MIDAZolam 1 MG/ML 5ML VIAL ONE (11:50)
[2023-05-08] MEDS ORDERED: LIDOcaine Viscous 15ml cup ONE (11:50)
[2023-05-08] MEDS ORDERED: epiNEPHrine 0.1mg/ml 10ml syringe ONE (11:56)
[2023-05-08] MEDS ORDERED: CALCIUM GLUC 1gm/50ml NACL,iso 50 ML IV ONE (12:11)
--- NOTE | 2023-05-08 16:03 | NUR ---
PAGER ID: [phone] MESSAGE: [id number]. Graciela Soriano. Per GI report Dr Anderson's recommendation is for Protonix 80mg bolus and 8mg/hour. Rosita [phone]
[2023-05-08] MEDS ORDERED: pantoprazole 40mg IV 80 MG in normal saline 100ml IV soln 100 ML IV ONE (17:20)
--- NOTE | 2023-05-08 18:28 | NUR ---
Problems reprioritized. Patient report given, questions answered & plan of care reviewed with Ani LLOYD.
[2023-05-08] MEDS: docusate sod 100mg capsule PO SCH (19:50)
[2023-05-08] MEDS: K and/or MAG REPLACEMENT MC SCH (19:50)
[2023-05-09] VITALS (8 sets, daily range): BP systolic 87–113; BP diastolic 36–74; PULSE 87–101; RESP 15–18; TEMP 97.5–99.9; O2SAT 93–100
[2023-05-09] MEDS: pantoprazole 40MG/NS 100ML BAG 100 ML IV SCH ×3 (01:14→21:32)
[2023-05-09] MEDS: normal saline 1000ml 1,000 ML IV SCH ×3 (05:47→18:57)
[2023-05-09 07:36] LABS: BASOPHILS % (AUTO) 0.3 % (0-1); EOSINOPHILS % (AUTO) 0.1 % (0-6); HEMATOCRIT 24.1 % (35.0-45.0); HEMOGLOBIN 8.4 g/dl (12.0-16.0); LYMPHOCYTES # (AUTO) 1.3 X10'3 (1.1-4.8); LYMPHOCYTES % (AUTO) 17.6 % (21-51); MEAN CORPUSCULAR HEMOGLOBIN 34.7 PG (27.0-31.0); MEAN CORPUSCULAR VOLUME 99.1 FL (78-98); MEAN PLATELET VOLUME 8.7 FL (7.4-10.4); MONOCYTES # (AUTO) 0.2 X10'3 (0-0.9); MONOCYTES % (AUTO) 3.4 % (2-12); NEUTROPHILS # (AUTO) 5.8 X10'3 (1.8-7.7); NEUTROPHILS % (AUTO) 78.6 % (42-75); PLATELET COUNT 62 X10'3 (140-440); RED BLOOD COUNT 2.43 X10'6 (4.20-5.60); RED CELL DISTRIBUTION WIDTH 20.6 % (11.5-14.5); WHITE BLOOD COUNT 7.3 X10'3 (4.5-11.0)
[2023-05-09 07:46] LABS: INR 1.1 INR; PROTHROMBIN TIME 11.8 SECONDS (9.0-12.0)
[2023-05-09] MEDS: CefTRIAXone/D5W-Rocephin 1gm 50 ML IV SCH (07:52)
[2023-05-09] MEDS: docusate sod 100mg capsule PO SCH ×2 (08:00→20:00)
[2023-05-09] MEDS: K and/or MAG REPLACEMENT MC SCH ×2 (08:00→20:00)
[2023-05-09 08:23] LABS: ALANINE AMINOTRANSFERASE 37 U/L (12-78); ALBUMIN 3.5 G/DL (3.4-5.0); ALBUMIN/GLOBULIN RATIO 1.2 (1.1-1.5); ALKALINE PHOSPHATASE 56 IU/L (46-116); ANION GAP 15 (8-16); ASPARTATE AMINO TRANSFERASE 31 U/L (10-37); BILIRUBIN,TOTAL 0.8 MG/DL (0.1-1.0); BLOOD UREA NITROGEN 13 MG/DL (7-18); BUN/CREATININE RATIO 14.8 (10.0-20.0); CALCIUM 7.8 MG/DL (8.5-10.1); CHLORIDE 105 MMOL/L (99-107); CHOLESTEROL 171 MG/DL (0-200); CREATININE 0.88 MG/DL (0.40-0.90); GLUCOSE 116 MG/DL (70-104); HDL CHOLESTEROL 57 MG/DL (35-60); LDL CHOLESTEROL 73 MG/DL (50-100); POTASSIUM 3.1 MMOL/L (3.5-5.1); SODIUM 142 MMOL/L (135-145); TOTAL CARBON DIOXIDE 22.1 MMOL/L (24-32); TOTAL PROTEIN 6.5 G/DL (6.4-8.2); TRIGLYCERIDES 176 MG/DL (20-135); eCRCL 63 ML/MIN; eGFR 68 ML/MIN
[2023-05-09 08:37] LABS: MAGNESIUM 0.9 MG/DL (1.5-2.4); PHOSPHORUS 0.8 MG/DL (2.3-4.5)
[2023-05-09 08:42] LABS: APTT 24 SECONDS (22-32)
[2023-05-09 09:03] LABS: PLATELET ESTIMATE DECREASED
[2023-05-09 09:05] LABS: ANISOCYTOSIS 3+
[2023-05-09] MEDS: potassium Cl 20 mEq SR tablet PO PRN ×3 (09:51→18:00)
[2023-05-09] MEDS: magnesium Cl slow-release 64mg tablet PO PRN (09:53)
[2023-05-09] MEDS ORDERED: potassium phosphate inj 30 MMOL in normal saline 250ml IV soln 250 ML IV ONE (10:30)
[2023-05-09] MEDS: lactose-reduced food (Ensure Enlive) - 237ml bottle PO SCH ×2 (13:27→18:00)
[2023-05-09] MEDS: mag hydrox/Alum hydrox/simeth 30ml oral suspension PO PRN ×2 (16:07→20:59)
[2023-05-09] MEDS ORDERED: NALT50TA PO (17:02)
--- NOTE | 2023-05-09 18:31 | NUR ---
Problems reprioritized. Patient report given, questions answered & plan of care reviewed with Taryn LLOYD.
--- NOTE | 2023-05-09 18:32 | NUR ---
Student Medication Administration: For this medication-pass time frame, all medication were reviewed, dispensed, administered and documented per hospital policy by Julio Cesar ALCANTARA.
[2023-05-09] MEDS ORDERED: pantoprazole 40mg IV 40 MG in normal saline 100ml IV soln 100 ML IV SCH (20:00)
[2023-05-10] MEDS: normal saline 1000ml 1,000 ML IV SCH (00:53)
[2023-05-10 02:00] VITALS: BP 92/51; PULSE 88; RESP 15; TEMP 99.2; O2SAT 99
[2023-05-10] MEDS: mag hydrox/Alum hydrox/simeth 30ml oral suspension PO PRN (02:48)
[2023-05-10] MEDS: magnesium Cl slow-release 64mg tablet PO PRN ×2 (05:34→13:38)
[2023-05-10 06:00] VITALS: BP 101/43; PULSE 78; RESP 17; TEMP 98.7; O2SAT 99
--- NOTE | 2023-05-10 06:41 | NUR ---
Problems reprioritized. Patient report given, questions answered & plan of care reviewed with Amanda LLOYD. Pt stable at transfer of care
--- NOTE | 2023-05-10 07:19 | NUR ---
Patient in room PCU 3018. I have received report from GABINO CARABALLO, and had the opportunity to ask questions and assume patient care.
[2023-05-10 08:00] VITALS: RESP 17; O2SAT 99
[2023-05-10] MEDS: docusate sod 100mg capsule PO SCH (08:00)
[2023-05-10] MEDS: K and/or MAG REPLACEMENT MC SCH (08:00)
[2023-05-10] MEDS: lactose-reduced food (Ensure Enlive) - 237ml bottle PO SCH ×2 (08:00→13:43)
[2023-05-10] MEDS: pantoprazole 40MG/NS 100ML BAG 100 ML IV SCH (08:02)
[2023-05-10 08:32] LABS: BASOPHILS % (AUTO) 0.6 % (0-1); EOSINOPHILS % (AUTO) 0.2 % (0-6); HEMOGLOBIN 7.2 g/dl (12.0-16.0); LYMPHOCYTES # (AUTO) 1.2 X10'3 (1.1-4.8); LYMPHOCYTES % (AUTO) 31.7 % (21-51); MEAN CORPUSCULAR HEMOGLOBIN 34.2 PG (27.0-31.0); MEAN CORPUSCULAR VOLUME 97.7 FL (78-98); MEAN PLATELET VOLUME 8.8 FL (7.4-10.4); MONOCYTES # (AUTO) 0.2 X10'3 (0-0.9); NEUTROPHILS # (AUTO) 2.4 X10'3 (1.8-7.7); NEUTROPHILS % (AUTO) 61.5 % (42-75); RED BLOOD COUNT 2.11 X10'6 (4.20-5.60); RED CELL DISTRIBUTION WIDTH 19.8 % (11.5-14.5); WHITE BLOOD COUNT 3.8 X10'3 (4.5-11.0)
[2023-05-10 08:44] LABS: APTT 22 SECONDS (22-32); INR 1.1 INR; PROTHROMBIN TIME 11.3 SECONDS (9.0-12.0)
[2023-05-10 08:50] LABS: ALANINE AMINOTRANSFERASE 32 U/L (12-78); ALBUMIN 3.1 G/DL (3.4-5.0); ALBUMIN/GLOBULIN RATIO 1.4 (1.1-1.5); ALKALINE PHOSPHATASE 51 IU/L (46-116); ANION GAP 9 (8-16); ASPARTATE AMINO TRANSFERASE 33 U/L (10-37); BILIRUBIN,TOTAL 0.8 MG/DL (0.1-1.0); BLOOD UREA NITROGEN 4 MG/DL (7-18); BUN/CREATININE RATIO 6.8 (10.0-20.0); CALCIUM 7.4 MG/DL (8.5-10.1); CHLORIDE 107 MMOL/L (99-107); CREATININE 0.59 MG/DL (0.40-0.90); GLUCOSE 115 MG/DL (70-104); PHOSPHORUS 2.1 MG/DL (2.3-4.5); SODIUM 142 MMOL/L (135-145); TOTAL CARBON DIOXIDE 26.3 MMOL/L (24-32); TOTAL PROTEIN 5.3 G/DL (6.4-8.2); eCRCL 95 ML/MIN; eGFR > 90 ML/MIN
[2023-05-10 08:59] LABS: MAGNESIUM 0.8 MG/DL (1.5-2.4); POTASSIUM 2.7 MMOL/L (3.5-5.1)
--- NOTE | 2023-05-10 09:01 | NUR ---
CRITICAL LAB VALUES TAKEN FROM LAB, REPORTED TO PRIMARY RN.
[2023-05-10] MEDS: CefTRIAXone/D5W-Rocephin 1gm 50 ML IV SCH (09:06)
[2023-05-10 09:08] LABS: HEMATOCRIT 20.6 % (35.0-45.0)
[2023-05-10 09:09] LABS: PLATELET COUNT 42 X10'3 (140-440)
--- NOTE | 2023-05-10 09:13 | NUR ---
CRITICAL LABS REPORTED TO DR. CAGE. RECEIVED ORDERS TO FOR POTASSIUM AND MAGNESIUM PROTOCOL. NO ORDERS FOR BLOOD TRANSFUSION.
[2023-05-10 09:15] LABS: PLATELET ESTIMATE DECREASED
[2023-05-10 09:16] LABS: ANISOCYTOSIS 2+
[2023-05-10] MEDS: potassium Cl 20 mEq SR tablet PO PRN ×2 (09:23→13:40)
[2023-05-10 10:00] VITALS: BP 104/54; PULSE 87; RESP 16; TEMP 97.5; O2SAT 99
[2023-05-10 11:31] LABS: HEMOGLOBIN 7.7 g/dl (12.0-16.0); MEAN CORPUSCULAR HEMOGLOBIN 34.2 PG (27.0-31.0); MEAN CORPUSCULAR HGB CONC 34.9 g/dL (33.0-36.5); MEAN CORPUSCULAR VOLUME 98.1 FL (78-98); MEAN PLATELET VOLUME 8.4 FL (7.4-10.4); RED BLOOD COUNT 2.24 X10'6 (4.20-5.60); RED CELL DISTRIBUTION WIDTH 19.6 % (11.5-14.5); WHITE BLOOD COUNT 4.7 X10'3 (4.5-11.0)
[2023-05-10 11:39] LABS: PLATELET COUNT 46 X10'3 (140-440)
[2023-05-10] MEDS ORDERED: PANT-47 PO ×2 (12:53)
[2023-05-10] MEDS ORDERED: MULT-1085 PO (12:56)
[2023-05-10] MEDS ORDERED: FOLI0.4T6 PO (12:56)
[2023-05-10] MEDS ORDERED: THIA50TA10 PO (12:56)
[2023-05-10] MEDS ORDERED: FERR-119 PO (12:58)
[2023-05-10] MEDS ORDERED: ACAM333T8 PO (12:58)
--- NOTE | 2023-05-10 15:35 | NUR ---
PT STABLE FOR DISCHARGE PER MD. DISCHARGE AND FOLLOW UP INSTRUCTIONS REVIEWED WITH PT, APPROPRIATE PAPERWORK SIGNED. PIV REMOVED WITH TIP INTACT. BELONGINGS GATHERED AND RETURNED TO PT. PRESCRIPTIONS FAXED TO [facility]. PT STRONGLY ENCOURAGED TO SEEK HELP WITH ALCOHOLISM. PT TRANSFERRED TO PRIVATE VEHICLE BY HOSPITAL STAFF. PT DISCHARGED TO HOME.
[2023-05-10] MEDS ORDERED: POTA-207 PO (23:01)
[2023-05-10] MEDS ORDERED: MAGN400C PO (23:01)
[2023-05-10] MEDS ORDERED: NEUPHOSK PO (23:01)
[2023-05-12] MEDS ORDERED: pantoprazole 40mg Tablet.DR PO SCH (01:00)
== END 2023-05-10 15:26 | disposition home or self-care (01) | DRG 242 ==
LOC: ER 23:03 → ED HOLD 05-08 03:05 → PCU 3S 05-08 15:30
PROVIDERS: ADMIT Surgery Surgical Critical Care; ATTEND Surgery Surgical Critical Care
PROC: 0DJ08ZZ Inspection of Upper Intestinal Tract, Via Natural or Artificial Opening Endoscopic (ICD-10-PCS; principal; 2023-05-08)
PROC: 30233N1 Transfusion of Nonautologous Red Blood Cells into Peripheral Vein, Percutaneous Approach (ICD-10-PCS; 2023-05-08)
DX: K22.11 Ulcer of esophagus with bleeding (principal); N17.0 Acute kidney failure with tubular necrosis; R65.11 Systemic inflammatory response syndrome (SIRS) of non-infectious origin with acute organ dysfunction; E87.29 Other acidosis; E83.39 Other disorders of phosphorus metabolism; K21.01 Gastro-esophageal reflux disease with esophagitis, with bleeding; E87.6 Hypokalemia; E83.42 Hypomagnesemia; Z20.822 Contact with and (suspected) exposure to COVID-19; F10.10 Alcohol abuse, uncomplicated; K44.9 Diaphragmatic hernia without obstruction or gangrene; Z80.0 Family history of malignant neoplasm of digestive organs; Z80.1 Family history of malignant neoplasm of trachea, bronchus and lung; Z82.49 Family history of ischemic heart disease and other diseases of the circulatory system; Z85.07 Personal history of malignant neoplasm of pancreas; Z85.118 Personal history of other malignant neoplasm of bronchus and lung; Z79.899 Other long term (current) drug therapy; Z88.1 Allergy status to other antibiotic agents
CPT/HCPCS: 36415; 36430; 36600; 43235; 71045; 80053; 80061; 80320; 81001; 82272; 82803; 82948; 83036; 83605; 83735; 84100; 85008; 85018; 85025; 85027; 85610; 85730; 86885; 86900; 86901; 86920; 87040; 87081; 87811; 94760; 99152; 99285; A4620; C9113; G0378; J0171; J0610; J0696; J0780; J1815; J2250; J2270; J2354; J2405; J3010; J3490; J7030; J7050; J7120; P9016; P9045

== ENCOUNTER 2023-09-09 20:15 | Inpatient (IN) | payer MEDICAID ==
[~2023-09-09] VITALS: Ht 160 cm; Wt 61.4 kg
[~2023-09-09 20:15] MED LIST changes: +ACAM333T8 PO; +FERR-119 PO; -FOLI1TAB27 PO; +MAGN400C PO; +MULT-1085 PO; -MULT-25 PO; -NALT50TA PO; +NEUPHOSK PO; -THIA100T70 PO; +THIA50TA10 PO
[2023-09-09 21:09] LABS: BASOPHILS % (AUTO) 0.2 % (0-1); EOSINOPHILS % (AUTO) 0 % (0-6); HEMATOCRIT 41.5 % (35.0-45.0); HEMOGLOBIN 13.9 g/dl (12.0-16.0); LYMPHOCYTES # (AUTO) 0.6 X10'3 (1.1-4.8); LYMPHOCYTES % (AUTO) 5.3 % (21-51); MEAN CORPUSCULAR HEMOGLOBIN 33.3 PG (27.0-31.0); MEAN CORPUSCULAR HGB CONC 33.6 g/dL (33.0-36.5); MEAN CORPUSCULAR VOLUME 99.4 FL (78-98); MONOCYTES # (AUTO) 0.6 X10'3 (0-0.9); MONOCYTES % (AUTO) 5.6 % (2-12); NEUTROPHILS # (AUTO) 9.4 X10'3 (1.8-7.7); NEUTROPHILS % (AUTO) 88.9 % (42-75); PLATELET COUNT 171 X10'3 (140-440); RED BLOOD COUNT 4.18 X10'6 (4.20-5.60); RED CELL DISTRIBUTION WIDTH 16.3 % (11.5-14.5); WHITE BLOOD COUNT 10.6 X10'3 (4.5-11.0)
[2023-09-09] MEDS ORDERED: ONDA4TAB12 PO (21:39)
[2023-09-09 21:42] LABS: ALBUMIN 5.1 G/DL (3.4-5.0); ANION GAP 35 (8-16); BLOOD UREA NITROGEN 7 MG/DL (7-18); CALCIUM 9.3 MG/DL (8.5-10.1); CHLORIDE 88 MMOL/L (99-107); CREATININE 1.17 MG/DL (0.40-0.90); GLUCOSE 269 MG/DL (70-104); POTASSIUM 4.6 MMOL/L (3.5-5.1); PRO BRAIN NATRIURETIC PEPTIDE 135 PG/ML (0-125); SODIUM 130 MMOL/L (135-145); eCRCL 48 ML/MIN; eGFR 49 ML/MIN
[2023-09-09 21:46] LABS: TOTAL CARBON DIOXIDE 7.2 MMOL/L (24-32)
[2023-09-09] MEDS: LORazepam 2 mg/ml vial IV ONE (21:50)
[2023-09-09] MEDS: diphenhydrAMINE 50 mg/ml inj IV ONE (21:50)
[2023-09-09] MEDS: metoclopramide 5 mg/ml inj IV ONE (21:51)
[2023-09-09] MEDS: glycopyrrolate 0.2mg/ml inj IV ONE (21:51)
[2023-09-09 22:08] LABS: ABG HCO3 6.9 mmol/L (22.0-26.0); ABG PCO2 (T) 16.4 mmHg (32.0-45.0); ABG PO2 (T) 79.1 mmHg (75.0-100.0); FCOHb 0.7 % (0.0-3.9); FHHb 5.9 % (0.0-5.0); FMetHb 0.4 % (0.0-1.5); MODE ROOM AIR; PATIENT TEMPERATURE 36.8; TOTAL HEMOGLOBIN 14.7 G/dl (12.0-16.0)
[2023-09-09] MEDS: normal saline 1000ML IV soln IVB ONE (22:09)
[2023-09-09] MEDS ORDERED: pantoprazole 40mg IV 80 MG in normal saline 100ml IV soln 100 ML IV ONE (23:20)
[2023-09-09] MEDS: acetaminophen 1,000mg/100ml IV 100 ML IV STA (23:33)
[2023-09-09] MEDS: LIDOcaine Viscous 15ml cup MM ONE (23:45)
[2023-09-09] MEDS: normal saline 1000ml 1,000 ML IV ONE (23:45)
[2023-09-09] MEDS: pantoprazole 40 MG vial IV ONE (23:49)
[2023-09-09] MEDS: pantoprazole 40MG/NS 100ML BAG 100 ML IV SCH (23:49)
[2023-09-09] MEDS: CefTRIAXone/D5W-Rocephin 1gm 50 ML IV ONE (23:49)
[2023-09-10] MEDS: normal saline 1000ML IV soln IV ONE (00:07)
[2023-09-10 00:28] LABS: ALANINE AMINOTRANSFERASE 21 U/L (12-78); ALBUMIN/GLOBULIN RATIO 1.2 (1.1-1.5); ALKALINE PHOSPHATASE 86 IU/L (46-116); ANION GAP 34 (8-16); ASPARTATE AMINO TRANSFERASE 21 U/L (10-37); BILIRUBIN,TOTAL 1.9 MG/DL (0.1-1.0); BLOOD UREA NITROGEN 9 MG/DL (7-18); BUN/CREATININE RATIO 7.6 (10.0-20.0); CALCIUM 9.2 MG/DL (8.5-10.1); CHLORIDE 89 MMOL/L (99-107); CREATININE 1.19 MG/DL (0.40-0.90); GLUCOSE 220 MG/DL (70-104); LIPASE 17 U/L (16-77); MAGNESIUM 1.3 MG/DL (1.5-2.4); POTASSIUM 4.5 MMOL/L (3.5-5.1); PRO BRAIN NATRIURETIC PEPTIDE 181 PG/ML (0-125); SODIUM 132 MMOL/L (135-145); TOTAL PROTEIN 9.3 G/DL (6.4-8.2); eCRCL 47 ML/MIN; eGFR 48 ML/MIN
[2023-09-10 00:35] LABS: TOTAL CARBON DIOXIDE 8.7 MMOL/L (24-32)
[2023-09-10] MEDS: levoFLOXACIN-Levaquin 750MG/D5 150 ML IV ONE (00:43)
[2023-09-10] MEDS: magnesium 4gm in 100ml NS 100 ML IV ONE (01:20)
[2023-09-10] MEDS: LORazepam 2 mg/ml vial IV ONE (02:24)
[2023-09-10] MEDS: mag hydrox/Alum hydrox/simeth 30ml oral suspension PO ONE (02:25)
[2023-09-10] MEDS ORDERED: acetaminophen 325mg tablet PO PRN (03:25)
[2023-09-10] MEDS ORDERED: potassium Cl 20 mEq SR tablet PO PRN (03:25)
[2023-09-10] MEDS ORDERED: magnesium Cl slow-release 64mg tablet PO PRN (03:25)
[2023-09-10] MEDS ORDERED: LORazepam 2 mg/ml vial IV PRN (03:25)
[2023-09-10] MEDS ORDERED: magnesium hydroxide 30ml (MOM) UD suspension PO PRN (03:25)
[2023-09-10] MEDS ORDERED: LORazepam 1 MG tablet PO PRN (03:25)
[2023-09-10] MEDS: normal saline 1000ml 1,000 ML IV SCH (03:25)
[2023-09-10] MEDS: heparin, porcine 5000 units/ml vial SQ SCH (07:15)
[2023-09-10] MEDS: magnesium 2GM in 50ml NS 50 ML IV PRN (07:15)
[2023-09-10] MEDS: thiamine 100mg/ml 2ml inj. IV SCH (07:17)
[2023-09-10] MEDS: morphine 2 MG/ML inj. syringe IV PRN (07:17)
[2023-09-10] MEDS: K and/or MAG REPLACEMENT MC SCH (07:26)
[2023-09-10 07:37] LABS: BILIRUBIN,URINE SMALL (Neg); CLARITY,URINE CLEAR (Clear); COLOR,URINE YELLOW (Yellow); GLUCOSE, URINE NEGATIVE (Neg); KETONES,URINE >=80 mg/dl (Neg); LEUKOCYTE ESTERASE ,URINE NEGATIVE (Neg); NITRITES, URINE NEGATIVE (Neg); OCCULT BLOOD,URINE SMALL (Neg); PROTEIN,URINE 100 mg/dl (Neg); UROBILINOGEN,URINE 0.2 E.U/dL (0.2-1.0)
[2023-09-10 07:43] LABS: UA COLLECTION TYPE NON-SPECIFIED
[2023-09-10 07:45] LABS: BACTERIA,URINE NONE SEEN /HPF (Neg); MUCUS STRANDS FEW /LPF (Neg); RBC,URINE 0-2 /HPF (0-2); SQUAMOUS EPITHELIAL CELL,UR FEW /LPF (FEW); WBC,URINE NONE SEEN /HPF (0-4)
[2023-09-10 08:42] LABS: GASTRIC OCCULT BLOOD POSITIVE (Neg)
[2023-09-10 09:11] LABS: BASOPHILS % (AUTO) 0.1 % (0-1); EOSINOPHILS % (AUTO) 0 % (0-6); HEMATOCRIT 31.7 % (35.0-45.0); HEMOGLOBIN 10.6 g/dl (12.0-16.0); LYMPHOCYTES # (AUTO) 0.9 X10'3 (1.1-4.8); LYMPHOCYTES % (AUTO) 10.5 % (21-51); MEAN CORPUSCULAR HGB CONC 33.6 g/dL (33.0-36.5); MEAN CORPUSCULAR VOLUME 98.4 FL (78-98); MEAN PLATELET VOLUME 8.1 FL (7.4-10.4); MONOCYTES # (AUTO) 1.1 X10'3 (0-0.9); MONOCYTES % (AUTO) 12.2 % (2-12); NEUTROPHILS # (AUTO) 6.7 X10'3 (1.8-7.7); NEUTROPHILS % (AUTO) 77.2 % (42-75); PLATELET COUNT 134 X10'3 (140-440); RED BLOOD COUNT 3.22 X10'6 (4.20-5.60); RED CELL DISTRIBUTION WIDTH 16.2 % (11.5-14.5); WHITE BLOOD COUNT 8.7 X10'3 (4.5-11.0)
[2023-09-10 09:13] LABS: ALANINE AMINOTRANSFERASE 16 U/L (12-78); ALBUMIN 3.8 G/DL (3.4-5.0); ALBUMIN/GLOBULIN RATIO 1.1 (1.1-1.5); ALKALINE PHOSPHATASE 61 IU/L (46-116); ANION GAP 22 (8-16); ASPARTATE AMINO TRANSFERASE 15 U/L (10-37); BILIRUBIN,TOTAL 1.2 MG/DL (0.1-1.0); BLOOD UREA NITROGEN 7 MG/DL (7-18); BUN/CREATININE RATIO 7.8 (10.0-20.0); CALCIUM 7.6 MG/DL (8.5-10.1); CHLORIDE 98 MMOL/L (99-107); GLUCOSE 137 MG/DL (70-104); POTASSIUM 3.9 MMOL/L (3.5-5.1); SALICYLATE 4.5 MG/DL (4.0-20.0); SODIUM 131 MMOL/L (135-145); TOTAL PROTEIN 7.4 G/DL (6.4-8.2); eCRCL 63 ML/MIN; eGFR 67 ML/MIN
[2023-09-10 09:18] LABS: OSMOLALITY 288 MOSM/K (280-300)
[2023-09-10 09:26] LABS: HEMOGLOBIN A1C 5.3 % (4.5-6.2)
[2023-09-10 09:27] LABS: TOTAL CARBON DIOXIDE 10.7 MMOL/L (24-32)
[2023-09-10] MEDS ORDERED: pantoprazole 40mg IV 80 MG in normal saline 100ml IV soln 100 ML IV ONE (10:05)
[2023-09-10] MEDS ORDERED: pantoprazole 40MG/NS 100ML BAG 100 ML IV SCH (11:00)
[2023-09-10] MEDS: magnesium 4gm in 100ml NS 100 ML IV PRN (12:06)
[2023-09-10 12:58] LABS: URINE AMPHETAMINE SCREEN NEGATIVE (Neg); URINE BARBITUATE SCREEN NEGATIVE (Neg); URINE BENZODIAZEPINES SCREEN NEGATIVE (Neg); URINE CANNABINOID SCREEN NEGATIVE (Neg); URINE COCAINE SCREEN NEGATIVE (Neg); URINE METHADONE SCREEN NEGATIVE (Neg); URINE OPIATE SCREEN NEGATIVE (Neg); URINE PHENCYCLIDINE SCREEN NEGATIVE (Neg)
[2023-09-10 14:30] VITALS: BP 124/85; PULSE 120; RESP 16; TEMP 98.3; O2SAT 100; O2SAT 95
[2023-09-10 18:00] VITALS: BP 116/68; PULSE 116; RESP 16; TEMP 98.1; O2SAT 99
[2023-09-10 20:00] VITALS: RESP 15; O2SAT 97
[2023-09-10 22:00] VITALS: BP 105/64; PULSE 102; RESP 18; TEMP 99.3; O2SAT 100
[2023-09-11] VITALS (7 sets, daily range): BP systolic 109–132; BP diastolic 47–70; PULSE 87–110; RESP 16–17; TEMP 98–99.2; O2SAT 95–100
[2023-09-11] MEDS: mag hydrox/Alum hydrox/simeth 30ml oral suspension PO PRN (01:05)
[2023-09-11 07:35] LABS: BASOPHILS % (AUTO) 0.3 % (0-1); EOSINOPHILS % (AUTO) 0.1 % (0-6); HEMATOCRIT 28.5 % (35.0-45.0); HEMOGLOBIN 9.6 g/dl (12.0-16.0); LYMPHOCYTES # (AUTO) 1.5 X10'3 (1.1-4.8); LYMPHOCYTES % (AUTO) 24.4 % (21-51); MEAN CORPUSCULAR HEMOGLOBIN 32.8 PG (27.0-31.0); MEAN CORPUSCULAR HGB CONC 33.6 g/dL (33.0-36.5); MEAN CORPUSCULAR VOLUME 97.4 FL (78-98); MEAN PLATELET VOLUME 8.9 FL (7.4-10.4); MONOCYTES # (AUTO) 0.5 X10'3 (0-0.9); MONOCYTES % (AUTO) 7.4 % (2-12); NEUTROPHILS # (AUTO) 4.2 X10'3 (1.8-7.7); NEUTROPHILS % (AUTO) 67.8 % (42-75); PLATELET COUNT 104 X10'3 (140-440); RED BLOOD COUNT 2.93 X10'6 (4.20-5.60); RED CELL DISTRIBUTION WIDTH 16.2 % (11.5-14.5); WHITE BLOOD COUNT 6.2 X10'3 (4.5-11.0)
[2023-09-11 07:47] LABS: ALANINE AMINOTRANSFERASE 14 U/L (12-78); ALBUMIN 3.3 G/DL (3.4-5.0); ALBUMIN/GLOBULIN RATIO 1.1 (1.1-1.5); ALKALINE PHOSPHATASE 50 IU/L (46-116); ANION GAP 10 (8-16); ASPARTATE AMINO TRANSFERASE 16 U/L (10-37); BILIRUBIN,TOTAL 0.7 MG/DL (0.1-1.0); BLOOD UREA NITROGEN 5 MG/DL (7-18); BUN/CREATININE RATIO 8.1 (10.0-20.0); CALCIUM 7.8 MG/DL (8.5-10.1); CHLORIDE 104 MMOL/L (99-107); CREATININE 0.62 MG/DL (0.40-0.90); GLUCOSE 108 MG/DL (70-104); SODIUM 137 MMOL/L (135-145); TOTAL CARBON DIOXIDE 22.8 MMOL/L (24-32); TOTAL PROTEIN 6.2 G/DL (6.4-8.2); eCRCL 91 ML/MIN; eGFR > 90 ML/MIN
[2023-09-11 07:51] LABS: PHOSPHORUS 0.4 MG/DL (2.3-4.5)
[2023-09-11] MEDS: Neutra Phos packet PO PRN (11:05)
[2023-09-11] MEDS: sodium phosphate inj. 30 MMOL in dextrose 5%-water 250 ML IV PRN (13:12)
[2023-09-11] MEDS: potassium Cl 20 mEq SR tablet PO PRN (16:04)
[2023-09-11 18:00] LABS: HEMOGLOBIN 9.4 g/dl (12.0-16.0); MEAN CORPUSCULAR HEMOGLOBIN 32.9 PG (27.0-31.0); MEAN CORPUSCULAR HGB CONC 33.5 g/dL (33.0-36.5); MEAN CORPUSCULAR VOLUME 98.1 FL (78-98); MEAN PLATELET VOLUME 9.2 FL (7.4-10.4); PLATELET COUNT 106 X10'3 (140-440); RED BLOOD COUNT 2.86 X10'6 (4.20-5.60); RED CELL DISTRIBUTION WIDTH 16.1 % (11.5-14.5); WHITE BLOOD COUNT 5.5 X10'3 (4.5-11.0)
[2023-09-11 20:16] LABS: PHOSPHORUS 2.2 MG/DL (2.3-4.5)
[2023-09-11] MEDS: traZODone 50mg tablet PO SCH (20:56)
[2023-09-12] VITALS (11 sets, daily range): BP systolic 88–131; BP diastolic 54–74; PULSE 76–97; RESP 14–22; TEMP 97.6–98.6; O2SAT 10–99
[2023-09-12] MEDS: potassium Cl 40MEQ/1/2NS 520ml 520 ML IV PRN (00:20)
[2023-09-12] MEDS: sodium phosphate inj. 15 MMOL in dextrose 5%-water 250 ML IV PRN (00:21)
[2023-09-12 10:42] LABS: BASOPHILS % (AUTO) 0.4 % (0-1); EOSINOPHILS % (AUTO) 0.5 % (0-6); HEMATOCRIT 27.9 % (35.0-45.0); HEMOGLOBIN 9.4 g/dl (12.0-16.0); LYMPHOCYTES # (AUTO) 1.3 X10'3 (1.1-4.8); LYMPHOCYTES % (AUTO) 37.3 % (21-51); MEAN CORPUSCULAR HEMOGLOBIN 32.9 PG (27.0-31.0); MEAN CORPUSCULAR HGB CONC 33.8 g/dL (33.0-36.5); MEAN CORPUSCULAR VOLUME 97.6 FL (78-98); MEAN PLATELET VOLUME 8.8 FL (7.4-10.4); MONOCYTES # (AUTO) 0.3 X10'3 (0-0.9); MONOCYTES % (AUTO) 7.9 % (2-12); NEUTROPHILS # (AUTO) 1.9 X10'3 (1.8-7.7); NEUTROPHILS % (AUTO) 53.9 % (42-75); PLATELET COUNT 102 X10'3 (140-440); RED BLOOD COUNT 2.86 X10'6 (4.20-5.60); RED CELL DISTRIBUTION WIDTH 16.2 % (11.5-14.5); WHITE BLOOD COUNT 3.6 X10'3 (4.5-11.0)
[2023-09-12] MEDS ORDERED: BUPR-94 PO (11:16)
[2023-09-12] MEDS: ondansetron/PF 4mg/2ml inj IV PRN (11:19)
[2023-09-12 11:20] LABS: ALANINE AMINOTRANSFERASE 18 U/L (12-78); ALBUMIN 3.4 G/DL (3.4-5.0); ALBUMIN/GLOBULIN RATIO 1.2 (1.1-1.5); ALKALINE PHOSPHATASE 42 IU/L (46-116); ANION GAP 13 (8-16); ASPARTATE AMINO TRANSFERASE 18 U/L (10-37); BILIRUBIN,TOTAL 0.5 MG/DL (0.1-1.0); BLOOD UREA NITROGEN 3 MG/DL (7-18); BUN/CREATININE RATIO 6.8 (10.0-20.0); CALCIUM 8.1 MG/DL (8.5-10.1); CHLORIDE 106 MMOL/L (99-107); CREATININE 0.44 MG/DL (0.40-0.90); GLUCOSE 111 MG/DL (70-104); MAGNESIUM 1.6 MG/DL (1.5-2.4); POTASSIUM 3.2 MMOL/L (3.5-5.1); SODIUM 140 MMOL/L (135-145); TOTAL CARBON DIOXIDE 21.2 MMOL/L (24-32); TOTAL PROTEIN 6.3 G/DL (6.4-8.2); eCRCL 128 ML/MIN; eGFR > 90 ML/MIN
[2023-09-12] MEDS ORDERED: MIDAZolam 1 MG/ML 5ML VIAL ONE (14:20)
[2023-09-12] MEDS ORDERED: fentaNYL/PF 50MCG/1 ML 2ML syringe ONE (14:20)
[2023-09-12] MEDS ORDERED: LIDOcaine Viscous 15ml cup ONE (14:20)
[2023-09-12] MEDS: ESCITALOPRAM 10 mg tablet 10 MG TABLET PO SCH (15:28)
[2023-09-12] MEDS: folic acid 1mg tablet PO SCH (15:28)
[2023-09-12] MEDS: pantoprazole 40 MG vial IV SCH (21:40)
[2023-09-13 06:18] VITALS: BP 122/77; PULSE 90; RESP 16; TEMP 98; O2SAT 98
[2023-09-13 07:59] LABS: BASOPHILS % (AUTO) 0.5 % (0-1); EOSINOPHILS % (AUTO) 0.9 % (0-6); HEMATOCRIT 26.2 % (35.0-45.0); HEMOGLOBIN 8.7 g/dl (12.0-16.0); LYMPHOCYTES # (AUTO) 1.4 X10'3 (1.1-4.8); LYMPHOCYTES % (AUTO) 41.9 % (21-51); MEAN CORPUSCULAR HEMOGLOBIN 32.8 PG (27.0-31.0); MEAN CORPUSCULAR HGB CONC 33.3 g/dL (33.0-36.5); MEAN CORPUSCULAR VOLUME 98.6 FL (78-98); MONOCYTES # (AUTO) 0.2 X10'3 (0-0.9); MONOCYTES % (AUTO) 7.3 % (2-12); NEUTROPHILS # (AUTO) 1.6 X10'3 (1.8-7.7); NEUTROPHILS % (AUTO) 49.4 % (42-75); PLATELET COUNT 98 X10'3 (140-440); RED BLOOD COUNT 2.65 X10'6 (4.20-5.60); RED CELL DISTRIBUTION WIDTH 16.2 % (11.5-14.5); WHITE BLOOD COUNT 3.3 X10'3 (4.5-11.0)
[2023-09-13 08:28] LABS: ALANINE AMINOTRANSFERASE 16 U/L (12-78); ALBUMIN/GLOBULIN RATIO 1.2 (1.1-1.5); ALKALINE PHOSPHATASE 40 IU/L (46-116); ANION GAP 10 (8-16); ASPARTATE AMINO TRANSFERASE 15 U/L (10-37); BILIRUBIN,TOTAL 0.3 MG/DL (0.1-1.0); BLOOD UREA NITROGEN 5 MG/DL (7-18); BUN/CREATININE RATIO 10.6 (10.0-20.0); CALCIUM 7.8 MG/DL (8.5-10.1); CHLORIDE 105 MMOL/L (99-107); CREATININE 0.47 MG/DL (0.40-0.90); GLUCOSE 106 MG/DL (70-104); MAGNESIUM 1.4 MG/DL (1.5-2.4); PHOSPHORUS 3.1 MG/DL (2.3-4.5); POTASSIUM 3.7 MMOL/L (3.5-5.1); SODIUM 141 MMOL/L (135-145); TOTAL PROTEIN 5.6 G/DL (6.4-8.2); eCRCL 120 ML/MIN; eGFR > 90 ML/MIN
[2023-09-13 08:49] VITALS: RESP 16; O2SAT 97
[2023-09-13] MEDS ORDERED: potassium Cl 40MEQ/1/2NS 520ml 520 ML IV PRN (09:25)
[2023-09-13] MEDS ORDERED: magnesium 4gm in 100ml NS 100 ML IV PRN (09:25)
[2023-09-13] MEDS ORDERED: potassium Cl 20 mEq SR tablet PO PRN ×2 (09:25)
[2023-09-13] MEDS ORDERED: magnesium 2GM in 50ml NS 50 ML IV PRN (09:25)
[2023-09-13 10:00] VITALS: BP 115/68; PULSE 80; RESP 14; TEMP 98.7; O2SAT 97
[2023-09-13] MEDS: magnesium Cl slow-release 64mg tablet PO PRN (10:22)
[2023-09-13] MEDS ORDERED: PANT-47 PO (12:59)
[2023-09-13] MEDS ORDERED: K and/or MAG REPLACEMENT MC SCH (20:00)
[2023-09-14] MEDS ORDERED: folic acid 1mg tablet PO SCH (08:00)
== END 2023-09-13 14:30 | disposition home or self-care (01) | DRG 241 ==
LOC: ER 20:15 → ED HOLD 09-10 03:43 → ORTHO 4S 09-10 14:20
PROVIDERS: ADMIT Orthopaedic Surgery Orthopaedic Surgery of the Spine; ATTEND Family Medicine
PROC: 0DB48ZX Excision of Esophagogastric Junction, Via Natural or Artificial Opening Endoscopic, Diagnostic (ICD-10-PCS; principal; 2023-09-12)
PROC: 0DB68ZX Excision of Stomach, Via Natural or Artificial Opening Endoscopic, Diagnostic (ICD-10-PCS; 2023-09-12)
DX: K29.71 Gastritis, unspecified, with bleeding (principal); E87.29 Other acidosis; K21.01 Gastro-esophageal reflux disease with esophagitis, with bleeding; E83.39 Other disorders of phosphorus metabolism; E87.1 Hypo-osmolality and hyponatremia; D50.0 Iron deficiency anemia secondary to blood loss (chronic); E87.6 Hypokalemia; F10.139 Alcohol abuse with withdrawal, unspecified; F32.A Depression, unspecified; I10 Essential (primary) hypertension; K44.9 Diaphragmatic hernia without obstruction or gangrene; R19.7 Diarrhea, unspecified; E83.42 Hypomagnesemia; Z88.1 Allergy status to other antibiotic agents; Z79.899 Other long term (current) drug therapy; Z81.1 Family history of alcohol abuse and dependence; Z82.49 Family history of ischemic heart disease and other diseases of the circulatory system; Z80.0 Family history of malignant neoplasm of digestive organs; Z80.1 Family history of malignant neoplasm of trachea, bronchus and lung; Z87.891 Personal history of nicotine dependence
CPT/HCPCS: 36415; 36600; 43239; 71045; 74176; 80048; 80053; 80305; 80320; 80329; 81001; 82271; 82803; 83036; 83605; 83690; 83735; 83880; 83930; 84100; 84132; 84484; 85018; 85025; 85027; 86885; 86900; 86901; 87040; 93005; 96365; 96367; 96375; 99152; 99291; A4620; C9113; G0378; J0131; J0696; J1200; J1644; J1956; J2060; J2250; J2270; J2405; J2765; J3010; J3411; J3475; J3480; J3490; J7030; J7060

== ENCOUNTER 2024-10-11 14:02 | Inpatient (IN) | payer MEDICAID ==
[~2024-10-11] VITALS: Ht 160 cm; Wt 49.8 kg
[~2024-10-11 14:02] MED LIST changes: +BUPR-94 PO; +ONDA-243 PO
[2024-10-11 15:51] LABS: BASOPHILS % (AUTO) 0.2 % (0-1); EOSINOPHILS % (AUTO) 0 % (0-6); HEMOGLOBIN 12.8 g/dl (12.0-16.0); LYMPHOCYTES # (AUTO) 1.2 X10'3 (1.1-4.8); LYMPHOCYTES % (AUTO) 16.5 % (21-51); MEAN CORPUSCULAR HEMOGLOBIN 34.6 PG (27.0-31.0); MEAN CORPUSCULAR HGB CONC 33.6 g/dL (33.0-36.5); MEAN CORPUSCULAR VOLUME 102.9 FL (78-98); MEAN PLATELET VOLUME 8.2 FL (7.4-10.4); MONOCYTES # (AUTO) 0.6 X10'3 (0-0.9); MONOCYTES % (AUTO) 8.5 % (2-12); NEUTROPHILS # (AUTO) 5.6 X10'3 (1.8-7.7); NEUTROPHILS % (AUTO) 74.8 % (42-75); PLATELET COUNT 192 X10'3 (140-440); RED BLOOD COUNT 3.69 X10'6 (4.20-5.60); RED CELL DISTRIBUTION WIDTH 15.4 % (11.5-14.5); WHITE BLOOD COUNT 7.5 X10'3 (4.5-11.0)
[2024-10-11 16:32] LABS: ALANINE AMINOTRANSFERASE 20 U/L (12-78); ALBUMIN 4.4 G/DL (3.4-5.0); ALBUMIN/GLOBULIN RATIO 1.3 (1.1-1.5); ALKALINE PHOSPHATASE 61 IU/L (46-116); ANION GAP 18 (8-16); ASPARTATE AMINO TRANSFERASE 17 U/L (10-37); BLOOD UREA NITROGEN 20 MG/DL (7-18); CALCIUM 8.7 MG/DL (8.5-10.1); CHLORIDE 92 MMOL/L (99-107); GLUCOSE 135 MG/DL (70-104); LIPASE 21 U/L (16-77); POTASSIUM 4.4 MMOL/L (3.5-5.1); SODIUM 129 MMOL/L (135-145); TOTAL CARBON DIOXIDE 18.8 MMOL/L (24-32); TOTAL PROTEIN 7.9 G/DL (6.4-8.2)
[2024-10-11 16:35] LABS: BUN/CREATININE RATIO 28.2 (10.0-20.0); CREATININE 0.71 MG/DL (0.40-0.90); eCRCL 74 ML/MIN; eGFR 87 ML/MIN
[2024-10-11 17:04] LABS: BILIRUBIN,URINE SMALL (Neg); CLARITY,URINE CLEAR (Clear); COLOR,URINE YELLOW (Yellow); GLUCOSE, URINE NEGATIVE (Neg); KETONES,URINE >=80 mg/dl (Neg); LEUKOCYTE ESTERASE ,URINE NEGATIVE (Neg); NITRITES, URINE NEGATIVE (Neg); OCCULT BLOOD,URINE NEGATIVE (Neg); PROTEIN,URINE NEGATIVE (Neg); UROBILINOGEN,URINE 0.2 E.U/dL (0.2-1.0)
[2024-10-11 17:05] LABS: URINE HCG NEGATIVE (NEG)
[2024-10-11 17:10] LABS: UA COLLECTION TYPE CLN CATCH MIDSTREAM
[2024-10-11] MEDS: ondansetron 4mg rapidly disintigrating tab PO ONE (19:18)
[2024-10-11 20:41] LABS: OCCULT BLOOD STOOL POSITIVE (Neg)
[2024-10-11] MEDS ORDERED: magnesium sulf-water 2g/50mL 50 ML IV PRN (21:20)
[2024-10-11] MEDS ORDERED: potassium Cl 40MEQ/1/2NS 520ml 520 ML IV PRN (21:20)
[2024-10-11] MEDS ORDERED: HYDROcodone/acetaminophen 5mg/325mg tablet PO PRN (21:20)
[2024-10-11] MEDS ORDERED: mag hydrox/Alum hydrox/simeth 30ml oral suspension PO PRN (21:20)
[2024-10-11] MEDS ORDERED: acetaminophen 325mg tablet PO PRN ×2 (21:20)
[2024-10-11] MEDS ORDERED: magnesium hydroxide 30ml (MOM) UD suspension PO PRN (21:20)
[2024-10-11] MEDS ORDERED: LORazepam 1 MG tablet PO PRN (21:20)
[2024-10-11] MEDS ORDERED: haloperidol 5mg tablet PO PRN (21:20)
[2024-10-11] MEDS ORDERED: magnesium sulf-water 4G/100mL 100 ML IV PRN (21:20)
[2024-10-11] MEDS ORDERED: potassium Cl 20 mEq SR tablet PO PRN (21:20)
[2024-10-11] MEDS: pantoprazole 40 MG vial IV ONE (21:26)
[2024-10-11] MEDS: normal saline 1000ml 1,000 ML IV SCH (21:37)
[2024-10-11 22:01] LABS: URINE AMPHETAMINE SCREEN NEGATIVE (Neg); URINE BARBITUATE SCREEN NEGATIVE (Neg); URINE BENZODIAZEPINES SCREEN NEGATIVE (Neg); URINE CANNABINOID SCREEN NEGATIVE (Neg); URINE COCAINE SCREEN NEGATIVE (Neg); URINE METHADONE SCREEN NEGATIVE (Neg); URINE OPIATE SCREEN NEGATIVE (Neg); URINE PHENCYCLIDINE SCREEN NEGATIVE (Neg)
[2024-10-11 23:39] LABS: HEMOGLOBIN A1C 5.4 % (4.5-6.2)
[2024-10-12] VITALS (7 sets, daily range): BP systolic 103–124; BP diastolic 52–79; PULSE 75–95; RESP 14–20; TEMP 98.1–99; O2SAT 94–100
[2024-10-12 00:12] LABS: APTT 25 SECONDS (22-32); INR 1.1 INR; PROTHROMBIN TIME 10.9 SECONDS (9.0-12.0)
[2024-10-12 00:18] LABS: CHOLESTEROL 213 MG/DL (0-200); FREE T4 (FREE THYROXINE) 0.76 NG/DL (0.73-1.40); HDL CHOLESTEROL 71 MG/DL (35-60); LDL CHOLESTEROL 105 MG/DL (50-100); THYROID STIMULATING HORMONE 7.28 ulU/ml (0.34-4.50); TRIGLYCERIDES 235 MG/DL (20-135)
[2024-10-12 00:31] LABS: OSMOLALITY 273.5 MOSM/K (280-300)
[2024-10-12] MEDS: ondansetron/PF 4mg/2ml inj IV PRN (01:37)
[2024-10-12 04:42] LABS: BASOPHILS % (AUTO) 0.3 % (0-1); EOSINOPHILS % (AUTO) 0.2 % (0-6); HEMOGLOBIN 10.9 g/dl (12.0-16.0); LYMPHOCYTES # (AUTO) 1.7 X10'3 (1.1-4.8); LYMPHOCYTES % (AUTO) 25.9 % (21-51); MEAN CORPUSCULAR HEMOGLOBIN 34.4 PG (27.0-31.0); MEAN CORPUSCULAR VOLUME 101.2 FL (78-98); MEAN PLATELET VOLUME 7.8 FL (7.4-10.4); MONOCYTES # (AUTO) 0.8 X10'3 (0-0.9); MONOCYTES % (AUTO) 11.6 % (2-12); NEUTROPHILS # (AUTO) 4.1 X10'3 (1.8-7.7); PLATELET COUNT 152 X10'3 (140-440); RED BLOOD COUNT 3.16 X10'6 (4.20-5.60); RED CELL DISTRIBUTION WIDTH 15.4 % (11.5-14.5); WHITE BLOOD COUNT 6.6 X10'3 (4.5-11.0)
[2024-10-12 04:54] LABS: ALBUMIN 3.8 G/DL (3.4-5.0); ANION GAP 11 (8-16); BLOOD UREA NITROGEN 7 MG/DL (7-18); BUN/CREATININE RATIO 11.9 (10.0-20.0); CALCIUM 8.4 MG/DL (8.5-10.1); CHLORIDE 98 MMOL/L (99-107); CREATININE 0.59 MG/DL (0.40-0.90); GLUCOSE 100 MG/DL (70-104); MAGNESIUM 1.4 MG/DL (1.5-2.4); POTASSIUM 3.7 MMOL/L (3.5-5.1); SODIUM 133 MMOL/L (135-145); eCRCL 89 ML/MIN; eGFR > 90 ML/MIN
[2024-10-12] MEDS: docusate sod 100mg capsule PO SCH (07:41)
[2024-10-12] MEDS: lactobacillus rhamnosus 10,000 MMU CELLS/CAPSULE PO SCH (07:41)
[2024-10-12] MEDS: multivitamins, therapeutics tablet PO SCH (07:42)
[2024-10-12] MEDS: magnesium Cl slow-release 64mg tablet PO PRN (07:42)
[2024-10-12] MEDS: K and/or MAG REPLACEMENT MC SCH (08:00)
[2024-10-12] MEDS: pantoprazole 40MG/NS 100ML BAG 100 ML IV SCH (08:20)
[2024-10-12 15:34] LABS: BASOPHILS % (AUTO) 0.3 % (0-1); EOSINOPHILS % (AUTO) 0.2 % (0-6); HEMATOCRIT 30.7 % (35.0-45.0); HEMOGLOBIN 10.3 g/dl (12.0-16.0); LYMPHOCYTES # (AUTO) 1.6 X10'3 (1.1-4.8); LYMPHOCYTES % (AUTO) 30.1 % (21-51); MEAN CORPUSCULAR HEMOGLOBIN 34.3 PG (27.0-31.0); MEAN CORPUSCULAR HGB CONC 33.7 g/dL (33.0-36.5); MEAN CORPUSCULAR VOLUME 101.8 FL (78-98); MONOCYTES # (AUTO) 0.7 X10'3 (0-0.9); NEUTROPHILS % (AUTO) 56.4 % (42-75); PLATELET COUNT 146 X10'3 (140-440); RED BLOOD COUNT 3.01 X10'6 (4.20-5.60); RED CELL DISTRIBUTION WIDTH 15.1 % (11.5-14.5); WHITE BLOOD COUNT 5.3 X10'3 (4.5-11.0)
[2024-10-12] MEDS: traZODone 50mg tablet PO SCH (22:40)
[2024-10-12 23:12] LABS: HEMATOCRIT 28.4 % (35.0-45.0); HEMOGLOBIN 9.7 g/dl (12.0-16.0); MEAN CORPUSCULAR HEMOGLOBIN 34.9 PG (27.0-31.0); MEAN CORPUSCULAR VOLUME 102.7 FL (78-98); MEAN PLATELET VOLUME 8.2 FL (7.4-10.4); PLATELET COUNT 132 X10'3 (140-440); RED BLOOD COUNT 2.77 X10'6 (4.20-5.60); WHITE BLOOD COUNT 4.7 X10'3 (4.5-11.0)
[2024-10-13 05:53] LABS: BASOPHILS % (AUTO) 0.5 % (0-1); EOSINOPHILS % (AUTO) 0.7 % (0-6); HEMATOCRIT 31.2 % (35.0-45.0); HEMOGLOBIN 10.7 g/dl (12.0-16.0); LYMPHOCYTES # (AUTO) 1.8 X10'3 (1.1-4.8); LYMPHOCYTES % (AUTO) 44.3 % (21-51); MEAN CORPUSCULAR HEMOGLOBIN 35.1 PG (27.0-31.0); MEAN CORPUSCULAR HGB CONC 34.4 g/dL (33.0-36.5); MEAN CORPUSCULAR VOLUME 101.9 FL (78-98); MEAN PLATELET VOLUME 8.5 FL (7.4-10.4); MONOCYTES # (AUTO) 0.5 X10'3 (0-0.9); MONOCYTES % (AUTO) 13.4 % (2-12); NEUTROPHILS # (AUTO) 1.7 X10'3 (1.8-7.7); NEUTROPHILS % (AUTO) 41.1 % (42-75); PLATELET COUNT 128 X10'3 (140-440); RED BLOOD COUNT 3.06 X10'6 (4.20-5.60); RED CELL DISTRIBUTION WIDTH 15.1 % (11.5-14.5); WHITE BLOOD COUNT 4.1 X10'3 (4.5-11.0)
[2024-10-13 06:00] VITALS: BP 99/48; PULSE 94; RESP 16; TEMP 98.6; O2SAT 100
[2024-10-13 06:21] LABS: ALBUMIN 3.4 G/DL (3.4-5.0); ANION GAP 9 (8-16); BLOOD UREA NITROGEN 3 MG/DL (7-18); BUN/CREATININE RATIO 5.7 (10.0-20.0); CALCIUM 8.1 MG/DL (8.5-10.1); CHLORIDE 105 MMOL/L (99-107); CREATININE 0.53 MG/DL (0.40-0.90); GLUCOSE 99 MG/DL (70-104); MAGNESIUM 1.6 MG/DL (1.5-2.4); POTASSIUM 3.2 MMOL/L (3.5-5.1); SODIUM 138 MMOL/L (135-145); TOTAL CARBON DIOXIDE 24.2 MMOL/L (24-32); eCRCL 99 ML/MIN; eGFR > 90 ML/MIN
[2024-10-13] MEDS: ESCITALOPRAM 10 mg tablet 10 MG TABLET PO SCH (08:23)
[2024-10-13] MEDS: potassium Cl 20 mEq SR tablet PO PRN (08:23)
[2024-10-13] MEDS: pantoprazole 40 MG vial IV SCH (08:24)
[2024-10-13] MEDS ORDERED: PANT-47 PO (09:58)
[2024-10-13 11:16] VITALS: BP 108/71; PULSE 96; RESP 16; TEMP 98.1; O2SAT 100
[2024-10-15] MEDS ORDERED: thiamine 100mg tablet PO SCH (08:00)
[2024-10-16] MEDS ORDERED: folic acid 1mg tablet PO SCH (08:00)
== END 2024-10-13 12:30 | disposition home or self-care (01) | DRG 253 ==
LOC: ER 14:03 → ED HOLD 21:23 → SUR 3N 10-12 01:22
PROVIDERS: ADMIT Internal Medicine Critical Care Medicine; ATTEND Internal Medicine
DX: K92.0 Hematemesis (principal); E87.22 Chronic metabolic acidosis; E87.1 Hypo-osmolality and hyponatremia; E87.8 Other disorders of electrolyte and fluid balance, not elsewhere classified; F10.10 Alcohol abuse, uncomplicated; F32.A Depression, unspecified; G47.00 Insomnia, unspecified; E66.9 Obesity, unspecified; D53.9 Nutritional anemia, unspecified; Y90.9 Presence of alcohol in blood, level not specified; E78.5 Hyperlipidemia, unspecified; Z80.0 Family history of malignant neoplasm of digestive organs; Z82.49 Family history of ischemic heart disease and other diseases of the circulatory system; Z88.1 Allergy status to other antibiotic agents; Z88.8 Allergy status to other drugs, medicaments and biological substances; Z80.1 Family history of malignant neoplasm of trachea, bronchus and lung; Z68.1 Body mass index [BMI] 19.9 or less, adult
CPT/HCPCS: 36415; 76700; 80048; 80053; 80061; 80305; 80320; 81003; 81025; 82272; 82948; 83036; 83605; 83690; 83735; 83930; 84439; 84443; 85025; 85027; 85610; 85730; 87081; 96374; 99285; G0378; J2405; J2470; J7030